=== PATIENT | male | born 1935 | race Caucasian/White ===

== ENCOUNTER 2019-01-19 16:23 | Emergency (ER) | payer MEDICARE, OTHER ==
[2019-01-19 19:10] LABS: Basophils % (A) 0 %; Eosinophils # (A) 0.1 k/uL (0-0.7); Eosinophils % (A) 1 %; HCT 35.6 % (39.0-53.0); HGB 12.5 gm/dL (13.0-17.5); Lymphocytes # (A) 1.8 k/uL (1.0-4.8); Lymphocytes % (A) 28 %; MCH 34.8 pg (25.0-35.0); MCV 99.3 fL (80.0-100.0); Mean Platelet Volume 7.4; Monocytes # (A) 0.4 k/uL (0-1.0); Monocytes % (A) 6 %; Neutrophils # (A) 4.1 k/uL (1.3-7.7); Neutrophils % (A) 63 %; Platelet Count 119 k/uL (150-450); RBC 3.58 m/uL (4.30-5.90); RDW 14.6 % (11.5-15.5); WBC 6.6 k/uL (3.8-10.6)
--- NOTE | 2019-01-19 19:14 | CT ---
EXAMINATION TYPE: CT brain juan torres DATE OF EXAM: 01/19/2019 COMPARISON: None HISTORY: weakness CT DLP: 1406.8 mGycm Automated exposure control for dose reduction was used. TECHNIQUE: CT scan of the head and cervical spine are performed without contrast. FINDINGS: There is no acute intracranial hemorrhage, mass effect, or midline shift identified. The ventricles and sulci are within normal limits in size. The globes are intact and the visualized sin uses are clear. Cervical spine is visualized in its entirety from C1 through upper thoracic levels and demonstrates s atisfactory alignment without evidence of acute fracture or dislocation. Prevertebral soft tissue ap pears within normal limits. Advanced multilevel cervical spondylosis changes. The C1-C2 articulation is unremarkable. IMPRESSION: 1. There is no acute fracture or dislocation evident in the cervical spine. 2. No acute intracranial hemorrhage, mass effect, or midline shift is seen.
[2019-01-19 19:16] LABS: Calcium 9.3 mg/dL (8.4-10.2); Potassium 4.6 mmol/L (3.5-5.1); Total Bilirubin 0.9 mg/dL (0.2-1.3); Total Protein 6.6 g/dL (6.3-8.2)
--- NOTE | 2019-01-19 19:16 | XR ---
EXAMINATION: XR chest 2V DATE AND TIME: 01/19/2019 6:14 PM CLINICAL INDICATION: PHH; Weakness TECHNIQUE: AP and lateral views COMPARISON: None FINDINGS: The lungs are clear. The pleural spaces are negative. The cardiac silhouette is not enlarged. The remainder of the mediastinal silhouette is unremarkable. The skeletal structures and soft tissues are negative for acute findings. IMPRESSION: NO ACUTE PROCESS.
[2019-01-19 19:27] LABS: Partial Thromboplastin Time 23.1 sec (22.0-30.0); Prothrombin Time 10.8 sec (9.0-12.0)
[2019-01-19 19:34] LABS: Appearance,Urine Clear (Clear); Bilirubin,Urine Negative (Negative); Blood,Urine Negative (Negative); Color,Urine Yellow; Glucose,Urine (UA) Negative (Negative); Ketones,Urine Negative (Negative); Leukocyte Esterase,Urine Negative (Negative); Nitrite,Urine Negative (Negative); PH, Urine 5.5 (5.0-8.0); Protein,Urine Negative (Negative); Specific Gravity,Urine 1.013 (1.001-1.035); Urobilinogen,Urine <2.0 mg/dL (<2.0)
--- NOTE | 2019-01-19 19:43 | ED ---
Weakness HPI - General Chief complaint: Weakness Stated complaint: poss stroke Time Seen by Provider: 01/19/19 16:30 Source: patient Mode of arrival: wheelchair Limitations: no limitations - History of Present Illness Initial comments: The patient is an 83-year-old male who presents to emergency room with reported weakness. states that he has been progressively worse over the past month. He has been ambulating with a cane which has progressed to a walker because of the weakness. She states since Friday the patient has been confused. She rep orts that on Friday he had a fall. Denies any blunt head trauma. The patient was reportedly trying to put his underwear on over his pants. The patient did see Dr. Major in office today. It was his normal follow-up. Dr. Major did notice that the patient's left side of his face was drooping. He recommended that he come to the emergency room for evaluation. states that the patient has always had a left-sided facial droop. She does not believe that it is any worse than normal. There has been reportedly 16 pounds of weight loss in the past month. The patient reports a good appetite. No nausea vomiting or diarrhea. Denies any melanotic stools or hematochezia. Denies any chest pain or shortness of breath. No abdominal pain. There are no other alleviating, precipitating or modifying factors - Related Data Home Medications Medication Instructions Recorded Confirmed Aspirin EC [Ecotrin Low Dose] 81 mg PO HS 01/19/19 01/19/19 Atorvastatin [Lipitor] 40 mg PO DAILY 01/19/19 01/19/19 C,E,Zinc,Copper 11/Qxljg6g/Lut 1 cap PO HS 01/19/19 01/19/19 [Ocuvite Adult 50 Plus Softgel] Ezetimibe [Zetia] 10 mg PO DAILY 01/19/19 01/19/19 Ferrous Sulfate [Feosol] 325 mg PO HS 01/19/19 01/19/19 Furosemide [Lasix] 20 mg PO DAILY 01/19/19 01/19/19 Gemfibrozil [Lopid] 600 mg PO BID 01/19/19 01/19/19 Insulin Glargine,Hum.rec.anlog 20 unit SQ DAILY@1800 01/19/19 01/19/19 [Lantus Solostar] Lisinopril [Zestril] 10 mg PO DAILY 01/19/19 01/19/19 Magnesium Oxide [Hicks] 500 mg PO HS 01/19/19 01/19/19 Metoprolol Tartrate 25 mg PO BID 01/19/19 01/19/19 Multivitamins, Thera [Multivitamin 1 tab PO HS 01/19/19 01/19/19 (formulary)] [place]-3 Fatty Acids/Fish Oil [Fish 1 cap PO HS 01/19/19 01/19/19 Oil 1,000 mg Softgel] glipiZIDE [Glucotrol] 10 mg PO BID 01/19/19 01/19/19 sitaGLIPtin PHOS/metFORMIN HCL 1 tab PO BID 01/19/19 01/19/19 [Janumet 50-500 mg Tablet] Allergies Allergy/AdvReac Type Severity Reaction Status Date / Time codeine Allergy Unknown Verified 01/19/19 16:50 Review of Systems ROS Statement: Those systems with pertinent positive or pertinent negative responses have been documented in the HPI. ROS Other: All systems not noted in ROS Statement are negative. Past Medical History Past Medical History: Diabetes Mellitus, Hyperlipidemia, Myocardial Infarction ([place]) History of Any Multi-Drug Resistant Organisms: None Reported Past Surgical History: Cholecystectomy, Heart Catheterization, Orthopedic Surgery Past Psychological History: No Psychological Hx Reported Smoking Status: Former smoker Past Alcohol Use History: None Reported Past Drug Use History: None Reported General Exam Limitations: no limitations Course Vital Signs 01/19/19 01/19/19 16:25 20:44 Temperature 97.4 F L 98.3 F Pulse Rate 59 L 53 L Respiratory 18 16 Rate Blood Pressure 122/60 128/62 O2 Sat by Pulse 98 97 Oximetry EKG Findings - EKG Comments: EKG Findings:: EKG demonstrates a sinus bradycardia with a ventricular rate of 56. IN interval is 204. QRS 100. QTC 426. There are inverted T waves in leads V3 through V5, lead 3. There are no acute ST segment elevations. There is no EKG available for comparison. Medical Decision Making - Medical Decision Making Upon arrival the patient is placed into room 1. He is hooked up to continuous pulse ox and cardiac cath lab manager. Thorough history and physical exam was performed. A 12 EKG is performed which demonstrates sinus bradycardia. I did recommend laboratory studies. Creatinine 1.27, glucose 24, CK 2:30, troponin 0.026, BNP 479. Patient is sent over for a CT of his brain which demonstrates no acute findings. Discussed these results with the patient and his at bedside. As the patient does present with increased confusion and inability to ambulate and left-sided facial droop I did recommend admission to the hospital for evaluation by neurology. The patient adamantly refuses. His is at bedside and does agree with this decision. He did inform the patient of the risks of leaving without a thorough evaluation which included permanent disability and even . Patient continues to request to leave. I informed him that he must follow-up with his primary care physician within the next 2 days. He should re turn to the emergency room for any new or worsening symptoms. The patient is with agree to this and he was discharged home in stable condition - Lab Data Result diagrams: 01/19/19 17:18 01/19/19 17:18 Lab Results 01/19/19 01/19/19 01/19/19 Range/Units 17:18 17:18 17:18 WBC 6.6 (3.8-10.6) k/uL RBC 3.58 L (4.30-5.90) m/uL Hgb 12.5 L (13.0-17.5) gm/dL Hct 35.6 L (39.0-53.0) % MCV 99.3 (80.0-100.0) fL MCH 34.8 (25.0-35.0) pg MCHC 35.0 (31.0-37.0) g/dL RDW 14.6 (11.5-15.5) % Plt Count 119 L (150-450) k/uL Neutrophils % 63 % Lymphocytes % 28 % Monocytes % 6 % Eosinophils % 1 % Basophils % 0 % Neutrophils # 4.1 (1.3-7.7) k/uL Lymphocytes # 1.8 (1.0-4.8) k/uL Monocytes # 0.4 (0-1.0) k/uL Eosinophils # 0.1 (0-0.7) k/uL Basophils # 0.0 (0-0.2) k/uL PT (9.0-12.0) sec INR (<1.2) APTT (22.0-30.0) sec Sodium 142 (137-145) mmol/L Potassium 4.6 (3.5-5.1) mmol/L Chloride 103 (98-107) mmol/L Carbon Dioxide 29 (22-30) mmol/L Anion Gap 10 mmol/L BUN 24 H (9-20) mg/dL Creatinine 1.27 H (0.66-1.25) mg/dL Est GFR (CKD-EPI)AfAm 60 (>60 ml/min/1.73 sqM) Est GFR (CKD-EPI)NonAf 52 (>60 ml/min/1.73 sqM) Glucose 154 H (74-99) mg/dL Plasma Lactic Acid Joey (0.7-2.0) mmol/L Calcium 9.3 (8.4-10.2) mg/dL Total Bilirubin 0.9 (0.2-1.3) mg/dL AST 36 (17-59) U/L ALT 24 (21-72) U/L Alkaline Phosphatase 87 (38-126) U/L Creatine Kinase 230 H (55-170) U/L Troponin I (0.000-0.034) ng/mL NT-Pro-B Natriuret Pep 479 pg/mL Total Protein 6.6 (6.3-8.2) g/dL Albumin 4.0 (3.5-5.0) g/dL TSH 1.180 (0.465-4.680) mIU/L Urine Color Urine Appearance (Clear) Urine pH (5.0-8.0) Ur Specific [place] (1.001-1.035) Urine Protein (Negative) Urine Glucose (UA) (Negative) Urine Ketones (Negative) Urine Blood (Negative) Urine Nitrite (Negative) Urine Bilirubin (Negative) Urine Urobilinogen (<2.0) mg/dL Ur Leukocyte Esterase (Negative) 01/19/19 01/19/19 01/19/19 Range/Units 17:18 17:18 17:50 WBC (3.8-10.6) k/uL RBC (4.30-5.90) m/uL Hgb (13.0-17.5) gm/dL Hct (39.0-53.0) % MCV (80.0-100.0) fL MCH (25.0-35.0) pg MCHC (31.0-37.0) g/dL RDW (11.5-15.5) % Plt Count (150-450) k/uL Neutrophils % % Lymphocytes % % Monocytes % % Eosinophils % % Basophils % % Neutrophils # (1.3-7.7) k/uL Lymphocytes # (1.0-4.8) k/uL Monocytes # (0-1.0) k/uL Eosinophils # (0-0.7) k/uL Basophils # (0-0.2) k/uL PT 10.8 (9.0-12.0) sec INR 1.0 (<1.2) APTT 23.1 (22.0-30.0) sec Sodium (137-145) mmol/L Potassium (3.5-5.1) mmol/L Chloride (98-107) mmol/L Carbon Dioxide (22-30) mmol/L Anion Gap mmol/L BUN (9-20) mg/dL Creatinine (0.66-1.25) mg/dL Est GFR (CKD-EPI)AfAm (>60 ml/min/1.73 sqM) Est GFR (CKD-EPI)NonAf (>60 ml/min/1.73 sqM) Glucose (74-99) mg/dL Plasma Lactic Acid Joey 1.2 (0.7-2.0) mmol/L Calcium (8.4-10.2) mg/dL Total Bilirubin (0.2-1.3) mg/dL AST (17-59) U/L ALT (21-72) U/L Alkaline Phosphatase (38-126) U/L Creatine Kinase (55-170) U/L Troponin I 0.026 (0.000-0.034) ng/mL NT-Pro-B Natriuret Pep pg/mL Total Protein (6.3-8.2) g/dL Albumin (3.5-5.0) g/dL TSH (0.465-4.680) mIU/L Urine Color Urine Appearance (Clear) Urine pH (5.0-8.0) Ur Specific [place] (1.001-1.035) Urine Protein (Negative) Urine Glucose (UA) (Negative) Urine Ketones (Negative) Urine Blood (Negative) Urine Nitrite (Negative) Urine Bilirubin (Negative) Urine Urobilinogen (<2.0) mg/dL Ur Leukocyte Esterase (Negative) 01/19/19 Range/Units 19:20 WBC (3.8-10.6) k/uL RBC (4.30-5.90) m/uL Hgb (13.0-17.5) gm/dL Hct (39.0-53.0) % MCV (80.0-100.0) fL MCH (25.0-35.0) pg MCHC (31.0-37.0) g/dL RDW (11.5-15.5) % Plt Count (150-450) k/uL Neutrophils % % Lymphocytes % % Monocytes % % Eosinophils % % Basophils % % Neutrophils # (1.3-7.7) k/uL Lymphocytes # (1.0-4.8) k/uL Monocytes # (0-1.0) k/uL Eosinophils # (0-0.7) k/uL Basophils # (0-0.2) k/uL PT (9.0-12.0) sec INR (<1.2) APTT (22.0-30.0) sec Sodium (137-145) mmol/L Potassium (3.5-5.1) mmol/L Chloride (98-107) mmol/L Carbon Dioxide (22-30) mmol/L Anion Gap mmol/L BUN (9-20) mg/dL Creatinine (0.66-1.25) mg/dL Est GFR (CKD-EPI)AfAm (>60 ml/min/1.73 sqM) Est GFR (CKD-EPI)NonAf (>60 ml/min/1.73 sqM) Glucose (74-99) mg/dL Plasma Lactic Acid Joey (0.7-2.0) mmol/L Calcium (8.4-10.2) mg/dL Total Bilirubin (0.2-1.3) mg/dL AST (17-59) U/L ALT (21-72) U/L Alkaline Phosphatase (38-126) U/L Creatine Kinase (55-170) U/L Troponin I (0.000-0.034) ng/mL NT-Pro-B Natriuret Pep pg/mL Total Protein (6.3-8.2) g/dL Albumin (3.5-5.0) g/dL TSH (0.465-4.680) mIU/L Urine Color Yellow Urine Appearance Clear (Clear) Urine pH 5.5 (5.0-8.0) Ur Specific [place] 1.013 (1.001-1.035) Urine Protein Negative (Negative) Urine Glucose (UA) Negative (Negative) Urine Ketones Negative (Negative) Urine Blood Negative (Negative) Urine Nitrite Negative (Negative) Urine Bilirubin Negative (Negative) Urine Urobilinogen <2.0 (<2.0) mg/dL Ur Leukocyte Esterase Negative (Negative) Disposition Clinical Impression: Confusion Disposition: HOME SELF-CARE Condition: Serious Additional Instructions: Please follow-up with Dr. Currie as soon as possible. I did recommend hospital admission. Return to the emergency room for any new or worsening symptoms Is patient prescribed a controlled substance at d/c from ED?: No Referrals: Evangelista Currie DO [Primary Care Provider] - 1-2 days Time of Disposition: 20:27
[2019-01-19 20:46] VITALS: BP 128/62; PULSE 53; RESP 16; TEMP 98.3
== END 2019-01-19 20:58 | disposition home or self-care (01) ==
LOC: EC 16:23
DX: R41.0 Disorientation, unspecified (principal); R53.1 Weakness; R63.4 Abnormal weight loss; Z68.28 Body mass index [BMI] 28.0-28.9, adult; R00.1 Bradycardia, unspecified; R29.810 Facial weakness; E78.5 Hyperlipidemia, unspecified; E11.9 Type 2 diabetes mellitus without complications; I25.2 Old myocardial infarction; Z79.4 Long term (current) use of insulin; Z79.82 Long term (current) use of aspirin; Z79.899 Other long term (current) drug therapy; Z88.5 Allergy status to narcotic agent; Z87.891 Personal history of nicotine dependence; Z95.5 Presence of coronary angioplasty implant and graft
CPT/HCPCS: 36415; 70450; 71046; 72125; 80053; 81003; 82550; 83605; 83880; 84443; 84484; 85025; 85610; 85730; 93005; 99285

== ENCOUNTER 2019-04-12 09:28 | Emergency (ER) | payer MEDICARE, OTHER ==
[2019-04-12 09:34] LABS: Glucose,Whole Blood 66 mg/dL (75-99)
[2019-04-12] MEDS ORDERED: SODIUM CHLORIDE 0.9% 1,000 ML IV ONE (09:34)
[2019-04-12] MEDS ORDERED: DEXTROSE 50% SYRINGE 50 ML IVP STA (09:39)
--- NOTE | 2019-04-12 09:41 | ED ---
General Adult HPI - General Stated complaint: altered mental status Time Seen by Provider: 04/12/19 09:28 Source: EMS, RN notes reviewed, old records reviewed - History of Present Illness Initial comments: This is an 83-year-old male who presents emergency Department with altered mental status. Patient was sent in by caregivers and he is been altered for the last 2 days been getting a little bit worse according to the caregivers. EMS stated when they arrived the patient's blood sugar was in the 50s and he was given sugar. According to EMS family thought his speech was slurred at this time. Upon arrival his speech seems to be fairly clear. After the patient had surgery he seemed to become more alert upon arrival he was alert and oriented 2. Patient had no complaints of pain. Patient denied any chest pain or back pain. Patient denied any abdominal pain. Patient denied any recent injury or trauma. No family member caregiver was with the patient. EMS did state that the patient been incontinent lately. There is no history of any fevers. No one is with the patient at this time to give any further history - Related Data Home Medications Medication Instructions Recorded Confirmed Aspirin EC [Ecotrin Low Dose] 81 mg PO HS 01/19/19 04/12/19 Atorvastatin [Lipitor] 40 mg PO DAILY 01/19/19 04/12/19 C,E,Zinc,Copper 11/Nhjgd5n/Lut 1 cap PO HS 01/19/19 04/12/19 [Ocuvite Adult 50 Plus Softgel] Ezetimibe [Zetia] 10 mg PO DAILY 01/19/19 04/12/19 Ferrous Sulfate [Feosol] 325 mg PO HS 01/19/19 04/12/19 Furosemide [Lasix] 20 mg PO DAILY 01/19/19 04/12/19 Gemfibrozil [Lopid] 600 mg PO BID 01/19/19 04/12/19 Insulin Glargine,Hum.rec.anlog 20 unit SQ HS 01/19/19 04/12/19 [Lantus Solostar] Lisinopril [Zestril] 5 mg PO DAILY 01/19/19 04/12/19 Magnesium Oxide [Hicks] 500 mg PO HS 01/19/19 04/12/19 Multivitamins, Thera [Multivitamin 1 tab PO HS 01/19/19 04/12/19 (formulary)] [place]-3 Fatty Acids/Fish Oil [Fish 1 cap PO HS 01/19/19 04/12/19 Oil 1,000 mg Softgel] glipiZIDE [Glucotrol] 10 mg PO BID 01/19/19 04/12/19 sitaGLIPtin PHOS/metFORMIN HCL 1 tab PO BID 01/19/19 04/12/19 [Janumet 50-500 mg Tablet] Cholecalciferol [Vitamin D3 (25 1,000 unit PO DAILY 04/12/19 04/12/19 Mcg = 1000 Iu)] Donepezil HCl [Aricept] 10 mg PO HS 04/12/19 04/12/19 Metoprolol Tartrate [Lopressor] 25 mg PO DAILY PRN 04/12/19 04/12/19 Allergies Allergy/AdvReac Type Severity Reaction Status Date / Time codeine Allergy Unknown Verified 04/12/19 10:50 Review of Systems ROS Statement: Those systems with pertinent positive or pertinent negative responses have been documented in the HPI. ROS Other: All systems not noted in ROS Statement are negative. Past Medical History Past Medical History: Diabetes Mellitus, Hyperlipidemia, Myocardial Infarction ([place]) History of Any Multi-Drug Resistant Organisms: None Reported Past Surgical History: Cholecystectomy, Heart Catheterization, Orthopedic Surgery Past Psychological History: No Psychological Hx Reported Smoking Status: Former smoker Past Alcohol Use History: None Reported Past Drug Use History: None Reported General Exam - General Exam Comments Initial Comments: GENERAL: Patient is well-developed and well-nourished. Patient is nontoxic and well- hydrated and is in no acute distress. ENT: Neck is soft and supple. No significant lymphadenopathy is noted. Oropharynx is clear. Moist mucous membranes. Neck has full range of motion without eliciting any pain. EYES: The sclera were anicteric and conjunctiva were pink and moist. Extraocular movements were intact and pupils were equal round and reactive to light. Eyelids were unremarkable. PULMONARY: Unlabored respirations. Good breath sounds bilaterally. No audible rales rhonchi or wheezing was noted. CARDIOVASCULAR: There is a regular rate and rhythm without any murmurs gallops or rubs. ABDOMEN: Soft and nontender with normal bowel sounds. SKIN: Skin is clear with no lesions or rashes and otherwise unremarkable. NEUROLOGIC: Patient is alert and oriented 2. Cranial nerves II through XII are grossly intact. Motor and sensory are also intact. Normal speech, volume and content. Symmetrical smile. MUSCULOSKELETAL: Normal extremities with adequate strength and full range of motion. LYMPHATICS: No significant lymphadenopathy is noted PSYCHIATRIC: Normal psychiatric evaluation. Course Vital Signs 04/12/19 04/12/19 04/12/19 09:30 09:45 09:52 Temperature 98 F 98 F Pulse Rate 63 66 63 Respiratory 18 18 18 Rate Blood Pressure 147/79 140/61 147/79 O2 Sat by Pulse 100 100 100 Oximetry 04/12/19 04/12/19 04/12/19 10:00 10:30 11:00 Temperature 98 F Pulse Rate 62 58 L 56 L Respiratory 16 16 16 Rate Blood Pressure 147/79 142/64 142/64 O2 Sat by Pulse 100 100 100 Oximetry 04/12/19 04/12/19 04/12/19 11:30 12:00 12:15 Temperature 97.8 F Pulse Rate 56 L 55 L 60 Respiratory 16 16 15 Rate Blood Pressure 142/64 142/64 142/64 O2 Sat by Pulse 100 99 95 Oximetry Medical Decision Making - Medical Decision Making EKG shows normal sinus rhythm at 61 speech per minute OH interval is 188 QRSs 102 QT interval 422 QTC is 424. Patient's EKG shows no ST segment elevation or depression. After patient's glucose was elevated he was back to his baseline according to family. Patient was able to ambulate around the ER without problem. Patient will follow-up with Dr. Currie. Patient is going to cut his insulin from 20 units at night down to 15 - Lab Data Result diagrams: 04/12/19 09:45 04/12/19 09:45 Lab Results 04/12/19 04/12/19 04/12/19 Range/Units 09:33 09:45 09:45 WBC 6.8 (3.8-10.6) k/uL RBC 3.57 L (4.30-5.90) m/uL Hgb 12.2 L (13.0-17.5) gm/dL Hct 36.1 L (39.0-53.0) % MCV 101.2 H (80.0-100.0) fL MCH 34.1 (25.0-35.0) pg MCHC 33.7 (31.0-37.0) g/dL RDW 12.8 (11.5-15.5) % Plt Count 92 L (150-450) k/uL Neutrophils % 65 % Lymphocytes % 26 % Monocytes % 5 % Eosinophils % 2 % Basophils % 0 % Neutrophils # 4.4 (1.3-7.7) k/uL Lymphocytes # 1.8 (1.0-4.8) k/uL Monocytes # 0.4 (0-1.0) k/uL Eosinophils # 0.1 (0-0.7) k/uL Basophils # 0.0 (0-0.2) k/uL Manual Slide Review Performed Poikilocytosis (manual Present Anisocytosis (manual) Present PT (9.0-12.0) sec INR (<1.2) APTT (22.0-30.0) sec Sodium 141 (137-145) mmol/L Potassium 4.5 (3.5-5.1) mmol/L Chloride 107 (98-107) mmol/L Carbon Dioxide 26 (22-30) mmol/L Anion Gap 8 mmol/L BUN 17 (9-20) mg/dL Creatinine 0.87 (0.66-1.25) mg/dL Est GFR (CKD-EPI)AfAm >90 (>60 ml/min/1.73 sqM) Est GFR (CKD-EPI)NonAf 80 (>60 ml/min/1.73 sqM) Glucose 188 H (74-99) mg/dL POC Glucose (mg/dL) 66 L (75-99) mg/dL POC Glu Development Specialist Joan Rudd Plasma Lactic Acid Joey (0.7-2.0) mmol/L Calcium 8.7 (8.4-10.2) mg/dL Total Bilirubin 1.1 (0.2-1.3) mg/dL AST 35 (17-59) U/L ALT 16 (4-49) U/L Alkaline Phosphatase 75 (38-126) U/L Troponin I (0.000-0.034) ng/mL Total Protein 6.2 L (6.3-8.2) g/dL Albumin 3.6 (3.5-5.0) g/dL Urine Color Urine Appearance (Clear) Urine pH (5.0-8.0) Ur Specific [place] (1.001-1.035) Urine Protein (Negative) Urine Glucose (UA) (Negative) Urine Ketones (Negative) Urine Blood (Negative) Urine Nitrite (Negative) Urine Bilirubin (Negative) Urine Urobilinogen (<2.0) mg/dL Ur Leukocyte Esterase (Negative) Urine RBC (0-5) /hpf Urine WBC (0-5) /hpf Urine Mucus (None) /hpf Urine Opiates Screen (NotDetected) Ur Oxycodone Screen (NotDetected) Urine Methadone Screen (NotDetected) Ur Propoxyphene Screen (NotDetected) Ur Barbiturates Screen (NotDetected) U Tricyclic Antidepress (NotDetected) Ur Phencyclidine Scrn (NotDetected) Ur Amphetamines Screen (NotDetected) U Methamphetamines Scrn (NotDetected) U Benzodiazepines Scrn (NotDetected) Urine Cocaine Screen (NotDetected) U Marijuana (THC) Screen (NotDetected) 04/12/19 04/12/19 04/12/19 Range/Units 09:45 09:45 09:45 WBC (3.8-10.6) k/uL RBC (4.30-5.90) m/uL Hgb (13.0-17.5) gm/dL Hct (39.0-53.0) % MCV (80.0-100.0) fL MCH (25.0-35.0) pg MCHC (31.0-37.0) g/dL RDW (11.5-15.5) % Plt Count (150-450) k/uL Neutrophils % % Lymphocytes % % Monocytes % % Eosinophils % % Basophils % % Neutrophils # (1.3-7.7) k/uL Lymphocytes # (1.0-4.8) k/uL Monocytes # (0-1.0) k/uL Eosinophils # (0-0.7) k/uL Basophils # (0-0.2) k/uL Manual Slide Review Poikilocytosis (manual Anisocytosis (manual) PT 11.0 (9.0-12.0) sec INR 1.0 (<1.2) APTT 23.8 (22.0-30.0) sec Sodium (137-145) mmol/L Potassium (3.5-5.1) mmol/L Chloride (98-107) mmol/L Carbon Dioxide (22-30) mmol/L Anion Gap mmol/L BUN (9-20) mg/dL Creatinine (0.66-1.25) mg/dL Est GFR (CKD-EPI)AfAm (>60 ml/min/1.73 sqM) Est GFR (CKD-EPI)NonAf (>60 ml/min/1.73 sqM) Glucose (74-99) mg/dL POC Glucose (mg/dL) (75-99) mg/dL POC Glu Development Specialist ID Plasma Lactic Acid Joey 1.2 (0.7-2.0) mmol/L Calcium (8.4-10.2) mg/dL Total Bilirubin (0.2-1.3) mg/dL AST (17-59) U/L ALT (4-49) U/L Alkaline Phosphatase (38-126) U/L Troponin I 0.018 (0.000-0.034) ng/mL Total Protein (6.3-8.2) g/dL Albumin (3.5-5.0) g/dL Urine Color Urine Appearance (Clear) Urine pH (5.0-8.0) Ur Specific [place] (1.001-1.035) Urine Protein (Negative) Urine Glucose (UA) (Negative) Urine Ketones (Negative) Urine Blood (Negative) Urine Nitrite (Negative) Urine Bilirubin (Negative) Urine Urobilinogen (<2.0) mg/dL Ur Leukocyte Esterase (Negative) Urine RBC (0-5) /hpf Urine WBC (0-5) /hpf Urine Mucus (None) /hpf Urine Opiates Screen (NotDetected) Ur Oxycodone Screen (NotDetected) Urine Methadone Screen (NotDetected) Ur Propoxyphene Screen (NotDetected) Ur Barbiturates Screen (NotDetected) U Tricyclic Antidepress (NotDetected) Ur Phencyclidine Scrn (NotDetected) Ur Amphetamines Screen (NotDetected) U Methamphetamines Scrn (NotDetected) U Benzodiazepines Scrn (NotDetected) Urine Cocaine Screen (NotDetected) U Marijuana (THC) Screen (NotDetected) 04/12/19 04/12/19 04/12/19 Range/Units 09:57 10:20 10:20 WBC (3.8-10.6) k/uL RBC (4.30-5.90) m/uL Hgb (13.0-17.5) gm/dL Hct (39.0-53.0) % MCV (80.0-100.0) fL MCH (25.0-35.0) pg MCHC (31.0-37.0) g/dL RDW (11.5-15.5) % Plt Count (150-450) k/uL Neutrophils % % Lymphocytes % % Monocytes % % Eosinophils % % Basophils % % Neutrophils # (1.3-7.7) k/uL Lymphocytes # (1.0-4.8) k/uL Monocytes # (0-1.0) k/uL Eosinophils # (0-0.7) k/uL Basophils # (0-0.2) k/uL Manual Slide Review Poikilocytosis (manual Anisocytosis (manual) PT (9.0-12.0) sec INR (<1.2) APTT (22.0-30.0) sec Sodium (137-145) mmol/L Potassium (3.5-5.1) mmol/L Chloride (98-107) mmol/L Carbon Dioxide (22-30) mmol/L Anion Gap mmol/L BUN (9-20) mg/dL Creatinine (0.66-1.25) mg/dL Est GFR (CKD-EPI)AfAm (>60 ml/min/1.73 sqM) Est GFR (CKD-EPI)NonAf (>60 ml/min/1.73 sqM) Glucose (74-99) mg/dL POC Glucose (mg/dL) 114 H (75-99) mg/dL POC Glu Development Specialist ID Lo, [place] Plasma Lactic Acid Joey (0.7-2.0) mmol/L Calcium (8.4-10.2) mg/dL Total Bilirubin (0.2-1.3) mg/dL AST (17-59) U/L ALT (4-49) U/L Alkaline Phosphatase (38-126) U/L Troponin I (0.000-0.034) ng/mL Total Protein (6.3-8.2) g/dL Albumin (3.5-5.0) g/dL Urine Color Yellow Urine Appearance Clear (Clear) Urine pH 6.0 (5.0-8.0) Ur Specific [place] 1.016 (1.001-1.035) Urine Protein Negative (Negative) Urine Glucose (UA) Negative (Negative) Urine Ketones Negative (Negative) Urine Blood Moderate H (Negative) Urine Nitrite Negative (Negative) Urine Bilirubin Negative (Negative) Urine Urobilinogen <2.0 (<2.0) mg/dL Ur Leukocyte Esterase Negative (Negative) Urine RBC 42 H (0-5) /hpf Urine WBC 1 (0-5) /hpf Urine Mucus Rare H (None) /hpf Urine Opiates Screen Not Detected (NotDetected) Ur Oxycodone Screen Not Detected (NotDetected) Urine Methadone Screen Not Detected (NotDetected) Ur Propoxyphene Screen Not Detected (NotDetected) Ur Barbiturates Screen Not Detected (NotDetected) U Tricyclic Antidepress Detected H (NotDetected) Ur Phencyclidine Scrn Not Detected (NotDetected) Ur Amphetamines Screen Not Detected (NotDetected) U Methamphetamines Scrn Not Detected (NotDetected) U Benzodiazepines Scrn Not Detected (NotDetected) Urine Cocaine Screen Not Detected (NotDetected) U Marijuana (THC) Screen Not Detected (NotDetected) Disposition Clinical Impression: Hypoglycemia Disposition: HOME SELF-CARE Instructions (If sedation given, give patient instructions): Hypoglycemia in a Person with Diabetes (ED) Additional Instructions: Patient should follow-up with Dr. Currie today or tomorrow Is patient prescribed a controlled substance at d/c from ED?: No Referrals: Evangelista Currie DO [Primary Care Provider] - 1-2 days Time of Disposition: 12:50
[2019-04-12 10:08] LABS: ALT 16 U/L (4-49); AST 35 U/L (17-59); African American GFR (CKD) >90 (>60 ml/min/1.73 sqM); Albumin 3.6 g/dL (3.5-5.0); Alkaline Phosphatase 75 U/L (38-126); Anion Gap 8 mmol/L; Blood Urea Nitrogen 17 mg/dL (9-20); Calcium 8.7 mg/dL (8.4-10.2); Carbon Dioxide 26 mmol/L (22-30); Chloride 107 mmol/L (98-107); Glucose 188 mg/dL (74-99); Non-African American GFR(CKD) 80 (>60 ml/min/1.73 sqM); Potassium 4.5 mmol/L (3.5-5.1); Sodium 141 mmol/L (137-145); Total Bilirubin 1.1 mg/dL (0.2-1.3); Total Protein 6.2 g/dL (6.3-8.2)
[2019-04-12 10:09] LABS: Glucose,Whole Blood 114 mg/dL (75-99)
[2019-04-12 10:09] LABS: Basophils % (A) 0 %; Eosinophils # (A) 0.1 k/uL (0-0.7); Eosinophils % (A) 2 %; HCT 36.1 % (39.0-53.0); HGB 12.2 gm/dL (13.0-17.5); Lymphocytes # (A) 1.8 k/uL (1.0-4.8); Lymphocytes % (A) 26 %; MCH 34.1 pg (25.0-35.0); MCHC 33.7 g/dL (31.0-37.0); MCV 101.2 fL (80.0-100.0); Mean Platelet Volume 7.4; Monocytes # (A) 0.4 k/uL (0-1.0); Monocytes % (A) 5 %; Neutrophils # (A) 4.4 k/uL (1.3-7.7); Neutrophils % (A) 65 %; RBC 3.57 m/uL (4.30-5.90); RDW 12.8 % (11.5-15.5); WBC 6.8 k/uL (3.8-10.6)
[2019-04-12 10:12] VITALS: BP 142/64
[2019-04-12 10:12] LABS: Partial Thromboplastin Time 23.8 sec (22.0-30.0)
--- NOTE | 2019-04-12 10:34 | CT ---
EXAMINATION TYPE: CT brain wo con DATE OF EXAM: 04/12/2019 COMPARISON: 01/19/2019 HISTORY: altered mental status CT DLP: 1091.[address] of the brain was performed. The ventricles, basal cisterns and sulci overlying the cerebral convexities demonstrate mild enlargem ent. There is no evidence for intracranial hemorrhage or sulcal effacement. There is decreased attenuation about the periventricular white matter and deep white matter of both c erebral hemispheres, compatible with chronic small vessel ischemia. Differential diagnosis does inclu de demyelination. No mass effects are seen.No midline shift. Osseous calvarium is intact. If symptoms persist consider MRI. IMPRESSION: 1. Age related atrophic and chronic small vessel ischemic change without acute intracranial process s een at this time.
--- NOTE | 2019-04-12 10:35 | XR ---
EXAMINATION TYPE: XR chest 2V DATE OF EXAM: 04/12/2019 COMPARISON: 01/19/2019 HISTORY: Shortness of breath TECHNIQUE: Frontal and lateral views of the chest are obtained. FINDINGS: Scattered senescent parenchymal changes noted. Hyperinflation compatible with COPD. No evidence for infiltrate. No evidence for atelectasis. Heart size is stable. Mediastinal structures are stable and grossly unremarkable. No evidence for hilar prominence. Degenerative changes dorsal spine. IMPRESSION: 1. No evidence for acute pulmonary disease.
[2019-04-12 10:49] LABS: Platelet Count 92 k/uL (150-450)
[2019-04-12 10:50] LABS: Anisocytosis (M) Present; Poikilocytosis (M) Present
[2019-04-12 10:51] LABS: Appearance,Urine Clear (Clear); Bilirubin,Urine Negative (Negative); Blood,Urine Moderate (Negative); Color,Urine Yellow; Glucose,Urine (UA) Negative (Negative); Ketones,Urine Negative (Negative); Leukocyte Esterase,Urine Negative (Negative); Mucus,Urine Rare /hpf; Nitrite,Urine Negative (Negative); Protein,Urine Negative (Negative); RBC,Urine 42 /hpf (0-5); Specific Gravity,Urine 1.016 (1.001-1.035); Urobilinogen,Urine <2.0 mg/dL (<2.0); WBC,Urine 1 /hpf (0-5)
[2019-04-12 11:08] LABS: Amphetamine Screen,Urine Not Detected (NotDetected); Barbiturate Screen,Urine Not Detected (NotDetected); Benzodiazepines Screen,Urine Not Detected (NotDetected); Cocaine Screen,Urine Not Detected (NotDetected); Methadone Screen, Urine Not Detected (NotDetected); Opiate Screen,Urine Not Detected (NotDetected); Oxycodone Screen, Urine Not Detected (NotDetected); Phencyclidine Screen,Urine Not Detected (NotDetected); Tricyclic Antidepressant,Urine Detected (NotDetected); Urn Cannabinoid Scrn Not Detected (NotDetected)
[2019-04-12 12:16] VITALS: PULSE 60; RESP 15; TEMP 97.8
== END 2019-04-12 13:05 | disposition home or self-care (01) ==
LOC: EC 09:28
DX: E11.649 Type 2 diabetes mellitus with hypoglycemia without coma (principal); E78.5 Hyperlipidemia, unspecified; I25.2 Old myocardial infarction; Z79.82 Long term (current) use of aspirin; Z79.4 Long term (current) use of insulin; Z79.899 Other long term (current) drug therapy; Z88.5 Allergy status to narcotic agent; Z87.891 Personal history of nicotine dependence
CPT/HCPCS: 36415; 70450; 71046; 80053; 80306; 81001; 83605; 84484; 85025; 85610; 85730; 93005; 96361; 96374; 99285

== ENCOUNTER 2019-05-24 10:01 | Inpatient (IN) | payer MEDICARE, OTHER ==
--- NOTE | 2019-05-24 10:16 | ED ---
General Adult HPI - General Stated complaint: stroke symptoms Time Seen by Provider: 05/24/19 10:01 Source: patient, EMS, RN notes reviewed Mode of arrival: EMS Limitations: altered mental status - History of Present Illness Initial comments: Patient is a pleasant 83-year-old male presenting to the emergency department with concerns for stroke. Onset of symptoms was noticed around 9:00. Last known well was 8 a.m. told EMS that patient was normal at 8 AM. Patient states he does not feel well however is unable to specify complaints very well. Patient does admit to having a headache however is unclear when it started or how severe it is. EMS reports the patient has expressive aphasia right facial droop and right arm weakness. Patient reportedly had similar symptoms not long ago and was diagnosed with TIA. No chest pain or dyspnea. - Related Data Home Medications Medication Instructions Recorded Confirmed Aspirin EC [Ecotrin Low Dose] 81 mg PO HS 01/19/19 05/24/19 Atorvastatin [Lipitor] 40 mg PO DAILY 01/19/19 05/24/19 Ezetimibe [Zetia] 10 mg PO DAILY 01/19/19 05/24/19 Ferrous Sulfate [Feosol] 325 mg PO HS 01/19/19 05/24/19 Gemfibrozil [Lopid] 600 mg PO BID 01/19/19 05/24/19 Insulin Glargine,Hum.rec.anlog 26 unit SQ HS 01/19/19 05/24/19 [Lantus Solostar] Lisinopril [Zestril] 10 mg PO DAILY 01/19/19 05/24/19 sitaGLIPtin PHOS/metFORMIN HCL 1 tab PO BID 01/19/19 05/24/19 [Janumet 50-500 mg Tablet] Donepezil HCl [Aricept] 10 mg PO HS 04/12/19 05/24/19 Metoprolol Tartrate [Lopressor] 25 mg PO DAILY 04/12/19 05/24/19 Allergies Allergy/AdvReac Type Severity Reaction Status Date / Time codeine Allergy Unknown Verified 05/24/19 11:14 Review of Systems ROS Statement: Those systems with pertinent positive or pertinent negative responses have been documented in the HPI. ROS Other: All systems not noted in ROS Statement are negative. Constitutional: Denies: fever Eyes: Denies: eye pain ENT: Denies: ear pain Respiratory: Denies: cough Cardiovascular: Denies: chest pain Endocrine: Denies: fatigue Gastrointestinal: Denies: abdominal pain Genitourinary: Denies: dysuria Skin: Denies: rash Neurological: Reports: headache, weakness Past Medical History Past Medical History: Diabetes Mellitus, Hyperlipidemia, Myocardial Infarction ([place]) History of Any Multi-Drug Resistant Organisms: None Reported Past Surgical History: Cholecystectomy, Heart Catheterization, Orthopedic Surgery Past Psychological History: No Psychological Hx Reported Smoking Status: Former smoker Past Alcohol Use History: None Reported Past Drug Use History: None Reported General Exam Limitations: no limitations General appearance: alert, in no apparent distress Head exam: Present: normocephalic Eye exam: Present: normal appearance, PERRL, EOMI. Absent: nystagmus ENT exam: Present: normal oropharynx Neck exam: Present: normal inspection Respiratory exam: Present: normal lung sounds bilaterally Cardiovascular Exam: Present: regular rate, normal rhythm Expanded Peripheral pulses: 2+: Radial (R), Radial (L), Dorsalis Pedis (R), Dorsalis Pedis (L) GI/Abdominal exam: Present: soft. Absent: distended, tenderness Extremities exam: Present: normal inspection Neurological exam: Present: alert, CN II-XII intact (Except for right facial droop) Expanded Neurological exam: Present: protecting the airway Patient oriented to: Present: person, place. Absent: time Speech: Present: expressive aphasia Cranial nerves: EOM's Intact: Normal, Facial Sensation: Normal Sensory exam: Upper Extremity Light Touch: Normal, Lower Extremity Light Touch: Normal Motor strength exam: RUE: 5, LUE: 5, RLE: 5, LLE: 5 Eye Response: (4) open spontaneously Motor Response: (6) obeys commands Verbal Response: (4) confused conversation Psychiatric exam: Present: normal affect, normal mood Skin exam: Present: normal color Course Vital Signs 05/24/19 05/24/19 05/24/19 10:05 10:06 10:09 Temperature 97.6 F 97.6 F Pulse Rate 133 H 70 133 H Respiratory 18 25 H 18 Rate Blood Pressure 167/73 167/73 O2 Sat by Pulse 100 Oximetry 05/24/19 05/24/19 05/24/19 10:15 11:00 11:30 Temperature Pulse Rate 74 61 Respiratory 18 6 L Rate Blood Pressure 167/73 150/69 150/69 O2 Sat by Pulse 98 99 Oximetry - Reevaluation(s) Reevaluation #1: 05/24/19 10:[address] Bonds who is unclear about TPA at this time. He will be the images and evaluate patient threw stroke robot 05/24/19 10:44 Dr. Bonds did evaluate patient on the stroke robot and determined NIH of 2 and states patient is not a TPA candidate. EKG Findings - EKG Comments: EKG Findings:: Normal sinus rhythm 70. ME 200. QRS 96. QT 412. QTC 444. Left axis. Septal Q waves. No acute ST change. Medical Decision Making - Medical Decision Making Patient again reevaluated and slightly improved. Family and patient updated. Case was also discussed in detail with Dr. Currie, who will admit his patient. - Lab Data Result diagrams: 05/24/19 10:28 05/24/19 10:28 Lab Results 05/24/19 05/24/19 05/24/19 Range/Units 10:06 10:28 10:28 WBC 6.3 (3.8-10.6) k/uL RBC 4.03 L (4.30-5.90) m/uL Hgb 13.6 (13.0-17.5) gm/dL Hct 40.7 (39.0-53.0) % MCV 101.1 H (80.0-100.0) fL MCH 33.8 (25.0-35.0) pg MCHC 33.4 (31.0-37.0) g/dL RDW 13.1 (11.5-15.5) % Plt Count 109 L (150-450) k/uL Neutrophils % 50 % Lymphocytes % 41 % Monocytes % 4 % Eosinophils % 1 % Basophils % 1 % Neutrophils # 3.2 (1.3-7.7) k/uL Lymphocytes # 2.6 (1.0-4.8) k/uL Monocytes # 0.3 (0-1.0) k/uL Eosinophils # 0.1 (0-0.7) k/uL Basophils # 0.1 (0-0.2) k/uL PT (9.0-12.0) sec INR (<1.2) APTT (22.0-30.0) sec Sodium 143 (137-145) mmol/L Potassium 4.0 (3.5-5.1) mmol/L Chloride 109 H (98-107) mmol/L Carbon Dioxide 25 (22-30) mmol/L Anion Gap 9 mmol/L BUN 12 (9-20) mg/dL Creatinine 0.80 (0.66-1.25) mg/dL Est GFR (CKD-EPI)AfAm >90 (>60 ml/min/1.73 sqM) Est GFR (CKD-EPI)NonAf 83 (>60 ml/min/1.73 sqM) Glucose 88 (74-99) mg/dL POC Glucose (mg/dL) 81 (75-99) mg/dL POC Glu [employer] Vehicle Driver ID [place] Amin Calcium 9.0 (8.4-10.2) mg/dL Total Bilirubin 1.2 (0.2-1.3) mg/dL AST 27 (17-59) U/L ALT 17 (4-49) U/L Alkaline Phosphatase 104 (38-126) U/L Total Creatine Kinase (55-170) U/L CK-MB (CK-2) (0.0-2.4) ng/mL CK-MB (CK-2) Rel Index Troponin I (0.000-0.034) ng/mL Total Protein 6.4 (6.3-8.2) g/dL Albumin 3.7 (3.5-5.0) g/dL 05/24/19 05/24/19 Range/Units 10:28 10:28 WBC (3.8-10.6) k/uL RBC (4.30-5.90) m/uL Hgb (13.0-17.5) gm/dL Hct (39.0-53.0) % MCV (80.0-100.0) fL MCH (25.0-35.0) pg MCHC (31.0-37.0) g/dL RDW (11.5-15.5) % Plt Count (150-450) k/uL Neutrophils % % Lymphocytes % % Monocytes % % Eosinophils % % Basophils % % Neutrophils # (1.3-7.7) k/uL Lymphocytes # (1.0-4.8) k/uL Monocytes # (0-1.0) k/uL Eosinophils # (0-0.7) k/uL Basophils # (0-0.2) k/uL PT 11.2 (9.0-12.0) sec INR 1.1 (<1.2) APTT 23.0 (22.0-30.0) sec Sodium (137-145) mmol/L Potassium (3.5-5.1) mmol/L Chloride (98-107) mmol/L Carbon Dioxide (22-30) mmol/L Anion Gap mmol/L BUN (9-20) mg/dL Creatinine (0.66-1.25) mg/dL Est GFR (CKD-EPI)AfAm (>60 ml/min/1.73 sqM) Est GFR (CKD-EPI)NonAf (>60 ml/min/1.73 sqM) Glucose (74-99) mg/dL POC Glucose (mg/dL) (75-99) mg/dL POC Glu [employer] Vehicle Driver ID Calcium (8.4-10.2) mg/dL Total Bilirubin (0.2-1.3) mg/dL AST (17-59) U/L ALT (4-49) U/L Alkaline Phosphatase (38-126) U/L Total Creatine Kinase 64 (55-170) U/L CK-MB (CK-2) 3.6 H (0.0-2.4) ng/mL CK-MB (CK-2) Rel Index 5.6 Troponin I 0.019 (0.000-0.034) ng/mL Total Protein (6.3-8.2) g/dL Albumin (3.5-5.0) g/dL - Radiology Data Radiology results: report reviewed (cT scan the brain shows no acute process. Age-related changes.) Disposition Clinical Impression: Cerebrovascular accident (CVA) Disposition: ADMITTED IP TO THIS HOSP Is patient prescribed a controlled substance at d/c from ED?: No Referrals: Evangelista Currie DO [Primary Care Provider] - 1-2 days Decision Time: 11:44
[2019-05-24 10:17] LABS: Glucose,Whole Blood 81 mg/dL (75-99)
--- NOTE | 2019-05-24 10:38 | CT ---
EXAMINATION TYPE: CT brain wo con for TPA DATE OF EXAM: 05/24/2019 HISTORY: Neuro deficit, acute, onset weakness CT DLP: unavailable mGycm. Automated Exposure Control for Dose Reduction was Utilized. TECHNIQUE: CT scan of the head is performed without contrast. COMPARISON: CT brain April 12, [address] January 19, 2019. FINDINGS: There is no acute intracranial hemorrhage or midline shift identified. There is diffuse v entricular and sulcal prominence consistent with diffuse age-related cerebral atrophy. There is low- attenuation in the periventricular white matter consistent with chronic small vessel ischemic change. The globes are intact and the visualized sinuses are clear. IMPRESSION: No acute intracranial hemorrhage or midline shift. There is moderate diffuse age-relate d cerebral atrophy and chronic small vessel ischemic change redemonstrated. No significant change fro m prior CTs.
[2019-05-24 10:44] LABS: Basophils # (A) 0.1 k/uL (0-0.2); Basophils % (A) 1 %; Eosinophils # (A) 0.1 k/uL (0-0.7); Eosinophils % (A) 1 %; HCT 40.7 % (39.0-53.0); HGB 13.6 gm/dL (13.0-17.5); Lymphocytes # (A) 2.6 k/uL (1.0-4.8); Lymphocytes % (A) 41 %; MCH 33.8 pg (25.0-35.0); MCHC 33.4 g/dL (31.0-37.0); MCV 101.1 fL (80.0-100.0); Mean Platelet Volume 7.1; Monocytes # (A) 0.3 k/uL (0-1.0); Monocytes % (A) 4 %; Neutrophils # (A) 3.2 k/uL (1.3-7.7); Neutrophils % (A) 50 %; Platelet Count 109 k/uL (150-450); RBC 4.03 m/uL (4.30-5.90); RDW 13.1 % (11.5-15.5); WBC 6.3 k/uL (3.8-10.6)
--- NOTE | 2019-05-24 10:49 | CT ---
EXAMINATION TYPE: CT angio head neck DATE OF EXAM: 05/24/2019 HISTORY: Neuro deficit, acute, stroke suspected COMPARISON: NONE CT DLP: 487.7 mGycm. Automated Exposure Control for Dose Reduction was Utilized. TECHNIQUE: CTA scan of the head and neck are performed with IV Contrast, patient injected with 65 mL of Isovue 370, axial images are obtained, coronal and sagittal reformatted images are reviewed. Thre e-D reconstructed images are created on an independent workstation and reviewed. FINDINGS: Carotid/Vascular Structures: Normal 3 vessel origin from aortic arch. Right common carotid artery talita ws normal origin from right brachiocephalic artery. No significant plaque or stenosis. Moderate calci fied plaque right carotid bulb extending into the proximal internal carotid artery without significan t stenosis. Tortuous course to the right internal carotid artery. Patent right external carotid arter y without significant plaque or stenosis. No significant plaque or stenosis left common carotid artery. Moderate calcified plaque left carotid bulb extending into proximal internal carotid artery without significant stenosis. Patent external ca rotid artery without significant stenosis. Slightly larger dominant left vertebral artery with mild calcified plaque along its course. Vertebral arteries are patent to basilar junction. Hypoplastic left posterior communicating artery. Patent rig ht posterior communicating artery. No significant focal stenosis or aneurysmal change. Patent anterio r communicating artery. No significant focal stenosis or aneurysmal change. Other: Moderate diffuse cerebral atrophy and chronic small vessel ischemic change and visualized brai n parenchyma. Moderate to severe disc space narrowing and moderate spurring C6-C7 level. Slight scoliotic curvature on coronal images. IMPRESSION: 1. No significant stenosis in common or internal carotid arteries bilaterally. Moderate calcified kamer[place] que bilateral carotid bulb level. 2. No significant stenosis or aneurysmal change at the level of the [place] of [place].
[2019-05-24 10:55] LABS: ALT 17 U/L (4-49); AST 27 U/L (17-59); African American GFR (CKD) >90 (>60 ml/min/1.73 sqM); Albumin 3.7 g/dL (3.5-5.0); Alkaline Phosphatase 104 U/L (38-126); Anion Gap 9 mmol/L; Blood Urea Nitrogen 12 mg/dL (9-20); Carbon Dioxide 25 mmol/L (22-30); Chloride 109 mmol/L (98-107); Glucose 88 mg/dL (74-99); Non-African American GFR(CKD) 83 (>60 ml/min/1.73 sqM); Sodium 143 mmol/L (137-145); Total Bilirubin 1.2 mg/dL (0.2-1.3); Total Protein 6.4 g/dL (6.3-8.2)
[2019-05-24 11:06] LABS: INR 1.1 (<1.2); Prothrombin Time 11.2 sec (9.0-12.0)
[2019-05-24 11:09] LABS: Creatine Kinase MB 3.6 ng/mL (0.0-2.4); Troponin I 0.019 ng/mL (0.000-0.034)
[2019-05-24] MEDS ORDERED: ASPIRIN 325 MG TAB PO STA (11:44)
[2019-05-24] MEDS: SODIUM CHLORIDE 0.9% 1,000 ML IV SCH ×2 (12:23→22:00)
--- NOTE | 2019-05-24 13:39 | XR ---
EXAMINATION TYPE: XR chest 2V DATE OF EXAM: 05/24/2019 COMPARISON: 04/12/2019 HISTORY: Altered mental status TECHNIQUE: Frontal and lateral views of the chest are obtained. FINDINGS: There is no focal air space opacity, pleural effusion, or pneumothorax seen. The cardiac silhouette size is upper limits of normal in size. The osseous structures are intact. Diffuse osseo us demineralization. Cholecystectomy clips are noted. IMPRESSION: No acute cardiopulmonary process.
[2019-05-24 18:48] LABS: Glucose,Whole Blood 76 mg/dL (75-99)
[2019-05-24 20:19] LABS: Glucose,Whole Blood 85 mg/dL (75-99)
[2019-05-24] MEDS ORDERED: ASPIRIN 81 MG PO SCH (21:30)
[2019-05-24] MEDS ORDERED: LORazepam 2 MG/ML INJ IV PRN (21:31)
[2019-05-24] MEDS: DONEPEZIL 10 MG TAB PO SCH (22:02)
[2019-05-24] MEDS: FERROUS SULFATE 325 MG TAB PO SCH (22:02)
[2019-05-24] MEDS: LISINOPRIL 10 MG TAB PO SCH (22:02)
[2019-05-24] MEDS: ATORVASTATIN 80 MG TAB PO SCH (22:02)
[2019-05-24] MEDS: FENOFIBRATE 160 MG TAB PO SCH (22:03)
[2019-05-24] MEDS: INSULIN DETEMIR (LEVEMIR) 100 UNIT/ML SYR SQ SCH (22:03)
[2019-05-25] MEDS: SODIUM CHLORIDE 0.9% 1,000 ML IV SCH ×2 (06:11→15:53)
[2019-05-25 06:23] LABS: Glucose,Whole Blood 92 mg/dL (75-99)
[2019-05-25] MEDS ORDERED: LINAGLIPTIN 5 MG TABLET PO SCH (09:00)
[2019-05-25] MEDS: LISINOPRIL 10 MG TAB PO SCH (11:05)
[2019-05-25] MEDS: EZETIMIBE 10 MG TAB PO SCH (11:05)
[2019-05-25] MEDS: FENOFIBRATE 160 MG TAB PO SCH (11:05)
[2019-05-25] MEDS: METOPROLOL TARTRATE 25 MG TAB PO SCH (11:06)
[2019-05-25] MEDS: metFORMIN 500 MG TAB PO SCH (11:06)
[2019-05-25] MEDS: LINAGLIPTIN 5 MG TABLET PO SCH (11:07)
[2019-05-25] MEDS ORDERED: ASPIRIN 325 MG TAB PO SCH (11:45)
[2019-05-25 12:18] LABS: Glucose,Whole Blood 245 mg/dL (75-99)
--- NOTE | 2019-05-25 13:08 | P.CNNES ---
History of Present Illness Consult date: 05/25/19 Reason for Consult: concern for stroke Chief complaint: R facial droop, RUE weakness History of Present Illness: HISTORY OF PRESENT ILLNESS: Thank you for allowing me to evaluate Mr. Kush Martin. Mr. Martin is an 83 year-old man with PMhx of DM, HLD, NM, dementia, who presented to [facility] after an episode of speech changes. Patient's daughter, Anai, is at bedsides. States that patient was with his when this happened. Yesterday morning, pt's found the patient having garbled speech and appearing confused. this episode lasted for several minutes until EMS arrived. Patient has had similar episodes before when his sugar was low, but his sugar was over 100 yesterday when checked. Patient has not been sick recently, no fevers, nausea, vomiting, diarrhea, coughing. Patient has been having signs of dementia for years, but it appears to have worsened in the past several months, and since 5-6 weeks ago, patient has been having difficulty with moving his legs. He used to be able to walk with a walker although cautiously, but now, patient has difficulty getting his legs up to his bed so he has to place himself in a very specific position so that he can just slide his legs up to the bed. PAST MEDICAL HISTORY: DM, HLD, NM, recent TIA PAST SURGICAL HISTORY: Cholecystectomy, heart cath HOME MEDICATIONS: ASA, atoravastatin, ezetimibe, ferrous sulfate, gemfibrozil, insulin, lisinopril, janumet, donepezil, metoprolol ALLERGIES: codeine SOCIAL HISTORY: former smoker. REVIEW OF SYSTEMS: The 14 systems are reviewed and no additional points are identified compared to the review of systems documented history and physical PHYSICAL EXAMINATION: VITAL SIGNS: T 98.5 HR 67 BP 144/66 O2 sat 96% on RA GEN.: NAD, pleasant but not always cooperative HEENT: NCAT, sclera without icterus NECK: Supple SKIN AND EXTREMITIES: Warm to touch, no edema NEURO: MENTAL STATUS: Patient alert and oriented to self only. Speech fluent, able to name and repeat, following most simple commands readily. No right and left disorientation, neglect. CRANIAL NERVES II THROUGH XII: II: Pupils are equal and reactive to light symmetrically. Visual chairez are intact to confrontation. III, IV, : No ptosis. Extraocular movements full. V: Facial sensation intact from V1-3. VII. L facial droop (daughter states that he's always looked this way ever since she can remember. VIII: Hearing intact to finger rub bilaterally. IX, X: Symmetric palate elevation. XI: Shoulder shrug intact. XII: Tongue midline without fasciculation or atrophy. MOTOR: Normal bulk. ?increased tone although could be due to patient's unable to understand to relax his arms. No pronator drift or tremor. Strength is 5/5 in b /l UE. Patient difficulty with moving b/l LE, able to slide both LEs slightly but not a lot. Plantar/dorsiflexion at least 4/5 SENSORY: Intact to light touch in all 4 extremities. REFLEXES: 2+ throughout. Toes are downgoing. COORDINATION: Finger to nose intact. No dysmetria. GAIT: not assessed DIAGNOSTIC TESTING: LABORATORY: WBC 6.3 Hgb 13.6 Platelet 109 Na 143. K 4.0 Cl 109 CO2 25 BUN 12 Cr 0.80 glucose 88 AST 27 ALT 17 AlkPhos 104 Troponin 0.019 TC 93 LDL 37 HDL 41 TG 76 TSH 1.280 IMAGING: CT Head w/o contrast 05/24/2019: No acute intracranial hemorrhage or midline shift. There is moderate diffuse age-related cerebral strophy and chronic small vessel ischemic change redemonstrated. CTA Head and Neck w/ and w/o contrast 05/24/2019: No significant stenosis in common or ICA bilaterally. Mod calcified plaque bilat eral carotid bulb level. No significant stenosis or aneurysmal change at the level of the [place] of [place]. ASSESSMENT: 83 year-old man with PMhx of DM, HLD, NM, dementia, who presented to [facility] after an episode of speech changes. Patient with risk factors for stroke: DM, HLD, former smoker. Will continue stroke work-up and management RECOMMENDATIONS: 1. MRI brain without contrast 2. Transthoracic echocardiogram 3. Cardiac monitoring 4. Permissive HTN for 24-48 hours SBP >220. Give labetalol 10mg IV q1h PRN for SBP >220 DBP >110 5. ASA 81mg qday 6. Atorvastatin 20mg qhs 7. Labs: A1C 8. PT/OT/ST per protocol 9. Neurology will continue to follow 10. Patient needs to follow up with neurologist as outpatient with her 1-2 we eks of discharge 11. Discussed ED precautions: return to ED if having severe headache, nausea, vomiting, vision deficits, speech difficulty, facial asymmetry, weakness, numbness or tingling. Past Medical History Past Medical History: Dementia, Diabetes Mellitus, Hyperlipidemia, Myocardial Infarction ([place]) Last Myocardial Infarction Date:: unknown History of Any Multi-Drug Resistant Organisms: None Reported Past Surgical History: Cholecystectomy, Heart Catheterization, Orthopedic Surgery Smoking Status: Former smoker - Past Family History Father Family Medical History: COPD Mother Family Medical History: Cancer Additional Family Medical History / Comment(s): lung ca Medications and Allergies Home Medications Medication Instructions Recorded Confirmed Type Aspirin EC [Ecotrin Low Dose] 81 mg PO HS 01/19/19 05/24/19 History Atorvastatin [Lipitor] 40 mg PO DAILY 01/19/19 05/24/19 History Ezetimibe [Zetia] 10 mg PO DAILY 01/19/19 05/24/19 History Ferrous Sulfate [Feosol] 325 mg PO HS 01/19/19 05/24/19 History Gemfibrozil [Lopid] 600 mg PO BID 01/19/19 05/24/19 History Insulin Glargine,Hum.rec.anlog 26 unit SQ HS 01/19/19 05/24/19 History [Lantus Solostar] Lisinopril [Zestril] 10 mg PO DAILY 01/19/19 05/24/19 History sitaGLIPtin PHOS/metFORMIN HCL 1 tab PO BID 01/19/19 05/24/19 History [Janumet 50-500 mg Tablet] Donepezil HCl [Aricept] 10 mg PO HS 04/12/19 05/24/19 History Metoprolol Tartrate [Lopressor] 25 mg PO DAILY 04/12/19 05/24/19 History Allergies Allergy/AdvReac Type Severity Reaction Status Date / Time codeine Allergy Unknown Verified 05/24/19 11:14 Physical Examination - Vital Signs Vital Signs: Vital Signs Temp Pulse Pulse Resp BP BP Pulse Ox 05/25/19 07:58 98.5 F 67 144/66 96 05/25/19 04:00 98.5 F 71 18 120/59 96 05/25/19 00:00 66 18 138/63 100 05/24/19 20:00 98.8 F 63 18 168/67 97 05/24/19 18:50 58 L 18 140/66 97 05/24/19 18:27 97.6 F 62 18 120/70 97 05/24/19 17:30 62 18 120/70 97 05/24/19 14:45 61 18 141/73 99 05/24/19 13:45 60 18 144/75 99 05/24/19 13:40 18 144/75 05/24/19 12:45 61 18 144/75 98 05/24/19 11:45 61 18 151/74 99 05/24/19 11:30 61 6 L 150/69 99 05/24/19 11:00 74 18 150/69 98 Intake and Output 05/24/19 05/25/19 05/25/19 22:59 06:59 14:59 Intake Total 800 240 Output Total 200 330 150 Balance 600 -330 90 Intake: Amount of Fluid Infused ( 800 ml) Oral 240 Output: Urine 200 330 150 Other: Voiding Method Urinal Urinal Urinal Diaper Diaper Diaper Incontinent Incontinent Incontinent # Voids 1 Weight 83.461 kg 82 kg Results - Laboratory Findings CBC and BMP: 05/24/19 10:28 05/24/19 10:28 Abnormal Lab Findings: Abnormal Labs 05/24/19 05/24/19 05/24/19 10:28 10:28 10:28 RBC 4.03 L MCV 101.1 H Plt Count 109 L Chloride 109 H CK-MB (CK-2) 3.6 H
--- NOTE | 2019-05-25 14:29 | MR ---
EXAMINATION TYPE: MR brain wo con DATE OF EXAM: 05/25/2019 1:54 PM COMPARISON: NONE HISTORY: neuro deficit FINDINGS: The ventricles, basal cisterns and sulci overlying the cerebral convexities are moderately enlarged. There is evidence of mild periventricular white matter ischemic demyelination. Remote deep white matter insults are also noted. No acute edema is seen on diffusion weighted imaging. There is no evidence for midline shift or mass effect. Acute intracranial hemorrhage or extra-axial collection is not evident. The paranasal sinuses and mastoid air cells are well-aerated. IMPRESSION: Age-related atrophic and chronic small vessel ischemic change. No acute intracranial process at this time.
[2019-05-25 14:44] LABS: Hemoglobin A1C 5.3 % (4.0-6.0)
[2019-05-25 17:53] LABS: Glucose,Whole Blood 234 mg/dL (75-99)
--- NOTE | 2019-05-25 19:22 | ECHOF ---
Referral Reason:concern for stroke MEASUREMENTS -------- HEIGHT: 188.0 cm WEIGHT: 82.1 kg BP: RVIDd: 3.7 cm (< 3.3) IVSd: 1.3 cm (0.6 - 1.1) LVIDd: 4.6 cm (3.9 - 5.3) LVPWd: 1.1 cm (0.6 - 1.1) IVSs: 1.5 cm LVIDs: 4.2 cm LVPWs: 1.3 cm LA Diam: 4.3 cm (2.7 - 3.8) MV EXCURSION: 16.399 mm (> 18.000) MV EF SLOPE: 113 mm/s (70 - 150) EPSS: 0.3 cm MV E Zack: 0.41 m/s MV DecT: 279 ms MV A Zack: 0.86 m/s MV E/A Ratio: 0.48 AV maxP.55 mmHg AV meanP.85 mmHg RAP: 5.00 mmHg RVSP: 13.29 mmHg FINDINGS -------- Undetermined rhythm. This was a techncally difficult study with suboptimal views, , Lumason utilized for enhancement of im ages. There is mild concentric left ventricular hypertrophy. Overall left ventricular systolic function i s moderate-severely impaired with, an EF between 30 - 35 %. Anterseptal Hypokinesis Inferior Hypo kinesis Septal Hypokinesis [place] Hypokinesis. The right ventricle is mildly enlarged. The left atrium is mildly dilated. The right atrial size is normal. 5.0mg OF Lumason UTLIZED: 2 OR MORE WALL SEGMENTS NOT VISUALIZED. The aortic valve was not well visualized. There is moderate aortic stenosis present. Peak/mean gr adient across the Aortic Valve is 24.55mmHg / 14.85mmHg. Mild mitral annular calcification present. Mild mitral regurgitation is present. Mild tricuspid regurgitation present. Right ventricular systolic pressure is normal at < 35 mmHg. There is no evidence of pulmonary hypertension. The pulmonic valve was not well visualized. The aortic root size is normal. There is no pericardial effusion. CONCLUSIONS -------- 1. Undetermined rhythm. 2. This was a techncally difficult study with suboptimal views, , Lumason utilized for enhancement of images. 3. There is mild concentric left ventricular hypertrophy. 4. Overall left ventricular systolic function is moderate-severely impaired with, an EF between 30 - 35 %. 5. Anterseptal Hypokinesis 6. Inferior Hypokinesis 7. Septal Hypokinesis 8. [place] Hypokinesis. 9. The right ventricle is mildly enlarged. 10. The left atrium is mildly dilated. 11. The right atrial size is normal. 12. 5.0mg OF Lumason UTLIZED: 2 OR MORE WALL SEGMENTS NOT VISUALIZED. 13. The aortic valve was not well visualized. 14. There is moderate aortic stenosis present. 15. Peak/mean gradient across the Aortic Valve is 24.55mmHg / 14.85mmHg. 16. Mild mitral annular calcification present. 17. Mild mitral regurgitation is present. 18. Mild tricuspid regurgitation present. 19. Right ventricular systolic pressure is normal at < 35 mmHg. 20. There is no evidence of pulmonary hypertension. 21. The pulmonic valve was not well visualized. 22. The aortic root size is normal. 23. There is no pericardial effusion. REEL SLITTER: Maeve Curry RDCS
[2019-05-25 20:26] LABS: Glucose,Whole Blood 159 mg/dL (75-99)
[2019-05-25] MEDS: DONEPEZIL 10 MG TAB PO SCH (20:39)
[2019-05-25] MEDS: ATORVASTATIN 20 MG TAB PO SCH (20:39)
[2019-05-25] MEDS: FERROUS SULFATE 325 MG TAB PO SCH (20:39)
[2019-05-25] MEDS: INSULIN DETEMIR (LEVEMIR) 100 UNIT/ML SYR SQ SCH (20:39)
[2019-05-25] MEDS: ATORVASTATIN 80 MG TAB PO SCH (20:43)
[2019-05-26] MEDS ORDERED: INSULIN DETEMIR (LEVEMIR) 100 UNIT/ML SYR SQ SCH (04:47)
[2019-05-26 06:14] LABS: Glucose,Whole Blood 104 mg/dL (75-99)
[2019-05-26] MEDS: SODIUM CHLORIDE 0.9% 1,000 ML IV SCH ×2 (06:15→16:33)
[2019-05-26 07:15] LABS: Basophils # (A) 0.1 k/uL (0-0.2); Basophils % (A) 1 %; Eosinophils # (A) 0.1 k/uL (0-0.7); Eosinophils % (A) 1 %; HCT 38.9 % (39.0-53.0); HGB 13.3 gm/dL (13.0-17.5); Lymphocytes # (A) 1.9 k/uL (1.0-4.8); Lymphocytes % (A) 22 %; MCH 34.2 pg (25.0-35.0); MCHC 34.1 g/dL (31.0-37.0); MCV 100.3 fL (80.0-100.0); Mean Platelet Volume 8.5; Monocytes # (A) 0.6 k/uL (0-1.0); Monocytes % (A) 6 %; Neutrophils # (A) 5.9 k/uL (1.3-7.7); Neutrophils % (A) 68 %; Platelet Count 138 k/uL (150-450); RBC 3.88 m/uL (4.30-5.90); WBC 8.7 k/uL (3.8-10.6)
[2019-05-26 07:26] LABS: African American GFR (CKD) >90 (>60 ml/min/1.73 sqM); Anion Gap 10 mmol/L; Blood Urea Nitrogen 6 mg/dL (9-20); Calcium 8.3 mg/dL (8.4-10.2); Carbon Dioxide 24 mmol/L (22-30); Chloride 107 mmol/L (98-107); Glucose 101 mg/dL (74-99); Non-African American GFR(CKD) >90 (>60 ml/min/1.73 sqM); Potassium 3.3 mmol/L (3.5-5.1); Sodium 141 mmol/L (137-145)
[2019-05-26] MEDS: ASPIRIN 81 MG PO SCH (08:15)
[2019-05-26] MEDS: LISINOPRIL 10 MG TAB PO SCH (08:15)
[2019-05-26] MEDS: LINAGLIPTIN 5 MG TABLET PO SCH (08:15)
[2019-05-26] MEDS: EZETIMIBE 10 MG TAB PO SCH (08:15)
[2019-05-26] MEDS: FENOFIBRATE 160 MG TAB PO SCH (08:15)
[2019-05-26] MEDS: METOPROLOL TARTRATE 25 MG TAB PO SCH (08:16)
[2019-05-26] MEDS: metFORMIN 500 MG TAB PO SCH (08:16)
[2019-05-26 08:30] LABS: Anisocytosis (M) Present; Poikilocytosis (M) Present
[2019-05-26] MEDS ORDERED: Magnesium Replacement Protocol 1 EACH MISC MISCELLANE PRN (11:09)
[2019-05-26] MEDS ORDERED: Potassium Replacement Protocol 1 EACH MISC MISCELLANE PRN (11:09)
[2019-05-26 11:57] LABS: Glucose,Whole Blood 128 mg/dL (75-99)
--- NOTE | 2019-05-26 12:04 | P.HPIM ---
History of Present Illness H&P Date: 05/25/19 Chief Complaint: Slurred speech, confusion This is an 83-year-old gentleman with history of dementia, diabetes mellitus, hyperlipidemia, CAD, NC, former nicotine dependent, recent TIA and multiple other medical issues presented to the ER via EMS with disorientation/confusion, headache, expressive aphasia, right facial droop with right arm weakness. Per ER record patient was at baseline at 0800 with onset of changes noted by 0900. Stroke robotic evaluation with neurologist Lilia Pappas the ER, NIH score of 2, and patient was deemed not a TPA candidate. Denies chest pain, palpitations or shortness of breath. EKG reported normal sinus rhythm, septal infarct, age u ndetermined. Troponin 0.019. Blood sugar 81 on admission. Hypertensive on admission with systolic blood pressures in the 160s, heart rate in the 130s. CBC, BMP within normal limits. Brain CT reporting no significant change from prior CTs, no intracranial hemorrhage or midline shift, moderately diffuse age- related cerebral atrophy, chronic small vessel disease. Angiography CT reported no significant stenosis in common or internal carotid arteries bilaterally, moderate calcified plaque bilateral carotid bulb level. No significant stenosis or aneurysmal change at the level of the [place]. Moderate to severe disc space narrowing and moderate spurring C6-C7 level. Neurology consulted. This morning appears to be close to baseline with minimal left facial droop, speech and confusion resolved,motor strength slow,generalized weakness, equal in all extremities. Review of Systems ROS Statement: Those systems with pertinent positive or pertinent negative responses have been documented in the HPI. ROS Other: All systems not noted in ROS Statement are negative. Past Medical History Past Medical History: Dementia, Diabetes Mellitus, Hyperlipidemia, Myocardial Infarction (NC) Last Myocardial Infarction Date:: unknown History of Any Multi-Drug Resistant Organisms: None Reported Past Surgical History: Cholecystectomy, Heart Catheterization, Orthopedic Surgery Smoking Status: Former smoker - Past Family History Father Family Medical History: COPD Mother Family Medical History: Cancer Additional Family Medical History / Comment(s): lung ca Medications and Allergies Home Medications Medication Instructions Recorded Confirmed Type Aspirin EC [Ecotrin Low Dose] 81 mg PO HS 01/19/19 05/24/19 History Atorvastatin [Lipitor] 40 mg PO DAILY 01/19/19 05/24/19 History Ezetimibe [Zetia] 10 mg PO DAILY 01/19/19 05/24/19 History Ferrous Sulfate [Feosol] 325 mg PO HS 01/19/19 05/24/19 History Gemfibrozil [Lopid] 600 mg PO BID 01/19/19 05/24/19 History Insulin Glargine,Hum.rec.anlog 26 unit SQ HS 01/19/19 05/24/19 History [Lantus Solostar] Lisinopril [Zestril] 10 mg PO DAILY 01/19/19 05/24/19 History sitaGLIPtin PHOS/metFORMIN HCL 1 tab PO BID 01/19/19 05/24/19 History [Janumet 50-500 mg Tablet] Donepezil HCl [Aricept] 10 mg PO HS 04/12/19 05/24/19 History Metoprolol Tartrate [Lopressor] 25 mg PO DAILY 04/12/19 05/24/19 History Allergies Allergy/AdvReac Type Severity Reaction Status Date / Time codeine Allergy Unknown Verified 05/24/19 11:14 Physical Exam Vitals: Vital Signs Temp Pulse Pulse Resp BP BP Pulse Ox 05/25/19 15:58 98 F 60 17 157/70 97 05/25/19 11:35 98.2 F 77 16 157/74 97 05/25/19 08:22 18 05/25/19 07:58 98.5 F 67 16 144/66 96 05/25/19 04:00 98.5 F 71 18 120/59 96 05/25/19 00:00 66 18 138/63 100 05/24/19 20:00 98.8 F 63 18 168/67 97 05/24/19 18:50 58 L 18 140/66 97 05/24/19 18:27 97.6 F 62 18 120/70 97 05/24/19 17:30 62 18 120/70 97 Intake and Output 05/25/19 05/25/19 05/25/19 06:59 14:59 22:59 Intake Total 480 Output Total 330 275 Balance -330 205 Intake: Oral 480 Output: Urine 330 275 Other: Voiding Method Urinal Urinal Urinal Diaper Diaper Diaper Incontinent Incontinent Incontinent # Voids 1 1 Weight 82 kg PHYSICAL EXAM: VITAL SIGNS: As above GENERAL: Sitting up in bed, no acute distress, minimal confusion HEENT: Conjunctivae normal. eyes normal. Mild Left facial droop, Oral mucosa moist NECK: No JVD. No thyroid enlargement. No LNs CARDIOVASCULAR: S1, S2 regular..No murmur RESPIRATION: Breath sounds diminished in the bases. No rhonchi or crackles. No bronchial breathing. ABDOMEN: Soft, nontender . No guarding. no masses palpable. No ascites, No hepatosplenomegaly.Bowel sounds heard. LEGS: No edema. no swelling PSYCHIATRY: Alert and oriented X2-3, mood and affect normal. NERVOUS SYSTEM: Cranial N 2-12 grossly normal. Moves all 4 limbs. Motor streng th slow,generalized weakness, equal in all extremities. No focal deficits. Strength and sensation grossly intact. Skin: no rash , warm and dry Joints: No active swelling. No inflammation. Lymphatic system. No LN neck axilla Results CBC & Chem 7: 05/26/19 06:49 05/26/19 06:49 Labs: Abnormal Lab Results - Last 24 Hours (Table) 05/25/19 Range/Units 12:04 POC Glucose (mg/dL) 245 H (75-99) mg/dL Thrombosis Risk Factor Assmnt - Choose All That Apply Each Risk Factor Represents 3 Points: Age 75 years or older Thrombosis Risk Factor Assessment Total Risk Factor Score: 3 Thrombosis Risk Factor Assessment Level: Moderate Risk Assessment and Plan Assessment: Acute CVA, possible TIA Recent TIA Essential hypertension Sinus tachycardia Dementia, type unknown Hyperlipidemia CT, history of NC Former nicotine dependence Plan: Continue current medication regime ,monitoring and symptomatic treatment. Neurology consult -evaluation/stroke workup in progress. Brain MRI pending Speech therapy consulted for swallow evaluation .Home meds have been reviewed and resumed accordingly. PT/OT consulted Prognosis guarded given multiple complex medical issues. The impression and plan of care has been dictated as directed. : I performed a history and examination of this patient, discussed the same with the dictator. I agree with the dictator's note ,documented as a scribe. Any additional findings or plans will be noted.
[2019-05-26] MEDS ORDERED: MAGNESIUM SULFATE-D5W PMX 1 GM in DEXTROSE/WATER 1 100ML.BAG IVPB ONE ×3 (12:25→17:00)
[2019-05-26] MEDS: PANTOPRAZOLE 40 MG/10 ML VIAL IVP SCH (13:30)
[2019-05-26] MEDS: POTASSIUM CHLORIDE ER 20 MEQ TAB.ER PO SCH ×2 (13:30→16:33)
--- NOTE | 2019-05-26 15:28 | P.PN ---
Progress Note - Text Progress Note Date: 05/26/19 SUBJECTIVE/INTERVAL EVENTS: No acute overnight events. Patient continues to be A&Ox1 only, denies any pain. Spoke to family about MRI result. No acute stroke. Age-related atrophy present. Family asked about whether or not donezepil that was started in February could be worsening his symptoms. Recommended family to call his neurologist and discuss possibility of discontinuing med since medication not helping. PHYSICAL EXAMINATION: VITAL SIGNS: T 98.8 HR 62 RR 18 BP 155/78 O2 sat 97% on RA GEN.: NAD, pleasant but not always cooperative HEENT: NCAT, sclera without icterus NECK: Supple SKIN AND EXTREMITIES: Warm to touch, no edema NEURO: MENTAL STATUS: Patient alert and oriented to self only. Speech fluent, able to name and repeat, following most simple commands readily. No right and left disorientation, neglect. CRANIAL NERVES II THROUGH XII: II: Pupils are equal and reactive to light symmetrically. Visual chairez are intact to confrontation. III, IV, : No ptosis. Extraocular movements full. V: Facial sensation intact from V1-3. VII. L facial droop (daughter states that he's always looked this way ever since she can remember. VIII: Hearing intact to finger rub bilaterally. IX, X: Symmetric palate elevation. XI: Shoulder shrug intact. XII: Tongue midline without fasciculation or atrophy. MOTOR: Normal bulk. ?increased tone although could be due to patient's unable to understand to relax his arms. No pronator drift or tremor. Strength is 5/5 in b/l UE. Patient difficulty with moving b/l LE, able to slide both LEs slightly but not a lot. Plantar/dorsiflexion at least 4/5 SENSORY: Intact to light touch in all 4 extremities. REFLEXES: 2+ throughout. Toes are downgoing. COORDINATION: Finger to nose intact. No dysmetria. GAIT: not assessed DIAGNOSTIC TESTING: LABORATORY: WBC 6.3 Hgb 13.6 Platelet 109 Na 143. K 4.0 Cl 109 CO2 25 BUN 12 Cr 0.80 glucose 88 AST 27 ALT 17 AlkPhos 104 Troponin 0.019 TC 93 LDL 37 HDL 41 TG 76 TSH 1.280 A1C 5.3 IMAGING: CT Head w/o contrast 05/24/2019: No acute intracranial hemorrhage or midline shift. There is moderate diffuse age-related cerebral strophy and chronic small vessel ischemic change redemonst rated. CTA Head and Neck w/ and w/o contrast 05/24/2019: No significant stenosis in common or ICA bilaterally. Mod calcified plaque bilateral carotid bulb level. No significant stenosis or aneurysmal change at the level of the [place] of [place]. MRI brain without contrast 05/25/2019: age-related atrophic and chronic small vessel ischemic change. No acute intr acranial process at this time. Transthoracic echocardiogram 05/25/2019: Undetermined rhythm. Technically difficult study. EF 30-35%. anteroseptal/septal/apex hypokinesis. RV is mildly enlarged. LA is mildly dilated. RA size is normal. Cardiac monitoring: Thus far, some PVCs noted. ASSESSMENT: 83 year-old man with PMhx of DM, HLD, OK, dementia, who presented to [facility] after an episode of speech changes. Patient with risk factors for stroke: DM, HLD, former smoker. MRI brain negative for acute stroke. Dx TIA RECOMMENDATIONS: 1. ASA 81mg qday 2. Atorvastatin 20mg qhs 3. Patient needs to follow up with neurologist as outpatient with her 3-4 weeks of discharge. Patient already has a neurologist who he has seen for dementia. 4. Discussed ED precautions: return to ED if having severe headache, nausea, vomiting, vision deficits, speech difficulty, facial asymmetry, weakness, numbness or tingling. 5. Neurology will sign off at this time. Please contact for additional questions or concerns.
[2019-05-26 17:39] LABS: Glucose,Whole Blood 168 mg/dL (75-99)
--- NOTE | 2019-05-26 18:25 | P.PN ---
Subjective Progress Note Date: 05/26/19 This is an 83-year-old gentleman with history of dementia, diabetes mellitus, hyperlipidemia, CAD, DC, former nicotine dependent, recent TIA and multiple other medical issues presented to the ER via EMS with disorientation/confusion, headache, expressive aphasia, right facial droop with right arm weakness. Per ER record patient was at baseline at 0800 with onset of changes noted by 0900. Stroke robotic evaluation with neurologist Lilia Pappas the ER, NIH score of 2, and patient was deemed not a TPA candidate. Denies chest pain, palpitations or shortness of breath. EKG reported normal sinus rhythm, septal infarct, age undetermined. Troponin 0.019. Blood sugar 81 on admission. Hypertensive on admission with systolic blood pressures in the 160s, heart rate in the 130s. CBC, BMP within normal limits. Brain CT reporting no significant change from prior CTs, no intracranial hemorrhage or midline shift, moderately diffuse age- related cerebral atrophy, chronic small vessel disease. Angiography CT reported no significant stenosis in common or internal carotid arteries bilaterally, moderate calcified plaque bilateral carotid bulb level. No significant stenosis or aneurysmal change at the level of the [place]. Moderate to severe disc space narrowing and moderate spurring C6-C7 level. Neurology consulted. This morning appears to be close to baseline with minimal left facial droop, speech and confusion resolved,motor strength slow,generalized weakness, equal in all extremities. 05/26/2019 received Ativan during the night, this morning arousable but sleepy, fatigued, weaker. Minimal diet intake this morning, consumed only 25% of breakfast/yesterday consumed 50% of meals. Blood sugars stable, controlled. Minimal diet intake Stroke workup in progress. Echo reported moderate to severe impaired LV function, EF 30-35%, and anteroseptal, inferior, hypokinesis, Po tassium 3.3 , magnesium 1.1. Brain MRI reporting no acute intracranial process. Objective - Vital Signs Vital signs: Vital Signs Temp 98.8 F 05/26/19 11:56 Pulse 66 05/26/19 11:56 Resp 13 05/26/19 11:56 BP 120/58 05/26/19 11:56 Pulse Ox 97 05/26/19 11:56 Intake & Output 05/25/19 05/26/19 05/26/19 18:59 06:59 18:59 Intake Total 480 120 Output Total 275 Balance 205 120 Weight 80.5 kg Intake: Oral 480 120 Output: Urine 275 Other: Voiding Method Urinal Urinal Diaper Diaper Diaper Incontinent Incontinent # Voids 1 2 1 - Exam EXAM: VITAL SIGNS: As above GENERAL: Sitting up in bed, no acute distress, appears to be sedated on Ativan HEENT: Conjunctivae normal. eyes normal. Mild Left facial droop NECK: No JVD. No thyroid enlargement. No LNs CARDIOVASCULAR: S1, S2 regular..No murmur RESPIRATION: Breath sounds diminished in the bases. No rhonchi or crackles. No bronchial breathing. ABDOMEN: Soft, nontender . No guarding. no masses palpable. No ascites, No hepatosplenomegaly.Bowel sounds heard. LEGS: No edema. no swelling PSYCHIATRY: Alert and oriented X2-3, mood and affect normal. NERVOUS SYSTEM: Cranial N 2-12 grossly normal. Mildly Weaker this am, attributed to ativan.Motor strength slow,generalized weakness, equal in all extremities. No focal deficits. Strength and sensation grossly intact. Skin: no rash , warm and dry Joints: No active swelling. No inflammation. Lymphatic system. No LN neck axilla - Labs CBC & Chem 7: 05/26/19 06:49 05/26/19 06:49 Labs: Abnormal Lab Results - Last 24 Hours (Table) 05/25/19 05/25/19 05/25/19 Range/Units 12:04 17:32 20:11 RBC (4.30-5.90) m/uL Hct (39.0-53.0) % MCV (80.0-100.0) fL Plt Count (150-450) k/uL Potassium (3.5-5.1) mmol/L BUN (9-20) mg/dL Creatinine (0.66-1.25) mg/dL Glucose (74-99) mg/dL POC Glucose (mg/dL) 245 H 234 H 159 H (75-99) mg/dL Calcium (8.4-10.2) mg/dL Magnesium (1.6-2.3) mg/dL 05/26/19 05/26/19 05/26/19 Range/Units 06:12 06:49 06:49 RBC 3.88 L (4.30-5.90) m/uL Hct 38.9 L (39.0-53.0) % MCV 100.3 H (80.0-100.0) fL Plt Count 138 L (150-450) k/uL Potassium 3.3 L (3.5-5.1) mmol/L BUN 6 L (9-20) mg/dL Creatinine 0.59 L (0.66-1.25) mg/dL Glucose 101 H (74-99) mg/dL POC Glucose (mg/dL) 104 H (75-99) mg/dL Calcium 8.3 L (8.4-10.2) mg/dL Magnesium (1.6-2.3) mg/dL 05/26/19 05/26/19 Range/Units 06:49 11:56 RBC (4.30-5.90) m/uL Hct (39.0-53.0) % MCV (80.0-100.0) fL Plt Count (150-450) k/uL Potassium (3.5-5.1) mmol/L BUN (9-20) mg/dL Creatinine (0.66-1.25) mg/dL Glucose (74-99) mg/dL POC Glucose (mg/dL) 128 H (75-99) mg/dL Calcium (8.4-10.2) mg/dL Magnesium 1.1 L (1.6-2.3) mg/dL Assessment and Plan Assessment: Acute TIA, CVA ruled out as per neurology. Recent TIA Essential hypertension Sinus tachycardia Dementia, type unknown Hyperlipidemia CT, history of DC Former nicotine dependence Hypokalemia Hypomagnesemia Plan: Continue current medication regime ,monitoring and symptomatic treatment. Potassium and magnesium supplements ordered .close monitoring of electrolytes with repeat labs ordered for a.m. PT/OT. Discharge planning in progress pending neurology clearance .Prognosis guarded given multiple complex medical issues. The impression and plan of care has been dictated as directed. : I performed a history and examination of this patient, discussed the same with the dictator. I agree with the dictator's note ,documented as a scribe. Any additional findings or plans will be noted.
[2019-05-26] MEDS: ATORVASTATIN 20 MG TAB PO SCH (20:42)
[2019-05-26] MEDS: DONEPEZIL 10 MG TAB PO SCH (20:42)
[2019-05-26] MEDS: FERROUS SULFATE 325 MG TAB PO SCH (20:42)
[2019-05-26 21:36] LABS: Glucose,Whole Blood 150 mg/dL (75-99)
[2019-05-27 02:01] LABS: Glucose,Whole Blood 107 mg/dL (75-99)
[2019-05-27] MEDS: SODIUM CHLORIDE 0.9% 1,000 ML IV SCH (03:27)
[2019-05-27 05:50] VITALS: RESP 16
[2019-05-27 07:13] LABS: Glucose,Whole Blood 79 mg/dL (75-99)
[2019-05-27 09:08] LABS: HCT 40.9 % (39.0-53.0); HGB 13.7 gm/dL (13.0-17.5); MCH 33.5 pg (25.0-35.0); MCHC 33.6 g/dL (31.0-37.0); MCV 99.8 fL (80.0-100.0); Mean Platelet Volume 7.4; Platelet Count 105 k/uL (150-450); RDW 12.9 % (11.5-15.5); WBC 9.7 k/uL (3.8-10.6)
[2019-05-27 09:35] LABS: African American GFR (CKD) >90 (>60 ml/min/1.73 sqM); Anion Gap 7 mmol/L; Blood Urea Nitrogen 5 mg/dL (9-20); Calcium 8.7 mg/dL (8.4-10.2); Carbon Dioxide 27 mmol/L (22-30); Chloride 106 mmol/L (98-107); Glucose 98 mg/dL (74-99); Magnesium 1.7 mg/dL (1.6-2.3); Non-African American GFR(CKD) >90 (>60 ml/min/1.73 sqM); Potassium 3.3 mmol/L (3.5-5.1); Sodium 140 mmol/L (137-145)
[2019-05-27] MEDS: FENOFIBRATE 160 MG TAB PO SCH (09:40)
[2019-05-27] MEDS: METOPROLOL TARTRATE 25 MG TAB PO SCH (09:40)
[2019-05-27] MEDS: LINAGLIPTIN 5 MG TABLET PO SCH (09:40)
[2019-05-27] MEDS: EZETIMIBE 10 MG TAB PO SCH (09:40)
[2019-05-27] MEDS: ASPIRIN 81 MG PO SCH (09:40)
[2019-05-27] MEDS: PANTOPRAZOLE 40 MG/10 ML VIAL IVP SCH (09:41)
[2019-05-27] MEDS: LISINOPRIL 10 MG TAB PO SCH (09:41)
[2019-05-27] MEDS: metFORMIN 500 MG TAB PO SCH (09:41)
--- NOTE | 2019-05-27 09:54 | P.DS ---
Providers Date of admission: 05/24/19 11:44 Expected date of discharge: 05/27/19 Attending physician: Evangelista Currie Consults: 05/24/19 11:45 Consult Physician Urgent Consulting Provider: Lucie Casillas Consult Reason/Comments: cva; Please compare current MRI to previous MRI Do you want consulting provider notified?: Yes Primary care physician: Evangelista Currie Hospital Course: Final Diagnoses: Acute metabolic encephalopathy secondary to Suspected worsening dementia, Alzheimer's,possible Acute TIA, CVA ruled out as per neurology. Recent TIA Essential hypertension Sinus tachycardia Dementia, type unknown Hyperlipidemia CT, history of SD Former nicotine dependence Hypokalemia Hypomagnesemia Hospital course:This is an 83-year-old gentleman with history of dementia, diabetes mellitus, hyperlipidemia, CAD, SD, former nicotine dependent, recent TIA and multiple other medical issues presented to the ER via EMS with disorientation/confusion, headache, expressive aphasia, right facial droop with right arm weakness. Per ER record patient was at baseline at 0800 with onset of changes noted by 0900. Stroke robotic evaluation with neurologist Lilia Pappas the ER, NIH score of 2, and patient was deemed not a TPA candidate. Denies chest pain, palpitations or shortness of breath. EKG reported normal sinus rhythm, septal infarct, age undetermined. Troponin 0.019. Blood sugar 81 on admission. Hypertensive on admission with systolic blood pressures in the 160s, heart rate in the 130s. CBC, BMP within normal limits. Brain CT reporting no significant change from prior CTs, no intracranial hemorrhage or midline shift, moderately diffuse age-related cerebral atrophy, chronic small vessel disease. Angiography CT reported no significant stenosis in common or internal carotid arteries bilaterally, moderate calcified plaque bilateral carotid bulb level. No significant stenosis or aneurysmal change at the level of the [place] of [place]. Moderate to severe disc space narrowing and moderate spurring C6-C7 level. Neurology consulted. This morning appears to be close to baseline with minimal left facial droop, speech and confusion resolved,motor strength slow,generalized weakness, equal in all extremities. 05/26/2019 received Ativan during the night, this morning arousable but sleepy, fatigued, weaker. Minimal diet intake this morning, consumed only 25% of break fast/yesterday consumed 50% of meals. Blood sugars stable, controlled. Minimal diet intake Stroke workup in progress. Echo reported moderate to severe impaired LV function, EF 30-35%, and anteroseptal, inferior, hypokinesis, Potassium 3.3 , magnesium 1.1. Brain MRI reporting no acute intracranial process. Significant clinical improvement. Cleared by neurology for discharge. Patient is being discharged to [facility] rehab in stable condition with guarded prognosis. EXAM: GENERAL: Alert and oriented 2, no acute distress CARDIOVASCULAR: S1, S2 regular..No murmur RESPIRATION: Breath sounds diminished in the bases. ABDOMEN: Soft, nontender . No guarding. no masses palpable.Bowel sounds heard. NERVOUS SYSTEM:No focal deficits. The impression and plan of care has been dictated as directed. : I performed a history and examination of this patient, discussed the same with the dictator. I agree with the dictator's note ,documented as a scribe. Any additional findings or plans will be noted. Patient Condition at Discharge: Stable Plan - Discharge Summary Discharge Rx Participant: Yes New Discharge Prescriptions: Continue Ferrous Sulfate [Iron (65 MG Elemental)] 325 mg PO HS Aspirin EC [Ecotrin Low Dose] 81 mg PO HS Insulin Glargine,Hum.rec.anlog [Lantus Solostar] 26 unit SQ HS Lisinopril [Zestril] 10 mg PO DAILY Gemfibrozil [Lopid] 600 mg PO BID Ezetimibe [Zetia] 10 mg PO DAILY Atorvastatin [Lipitor] 40 mg PO DAILY sitaGLIPtin PHOS/metFORMIN HCL [Janumet 50-500 mg Tablet] 1 tab PO BID Donepezil HCl [Aricept] 10 mg PO HS Metoprolol Tartrate [Lopressor] 25 mg PO DAILY Discharge Medication List Aspirin EC [Ecotrin Low Dose] 81 mg PO HS 01/19/19 [History] Atorvastatin [Lipitor] 40 mg PO DAILY 01/19/19 [History] Ezetimibe [Zetia] 10 mg PO DAILY 01/19/19 [History] Ferrous Sulfate [Iron (65 MG Elemental)] 325 mg PO HS 01/19/19 [History] Gemfibrozil [Lopid] 600 mg PO BID 01/19/19 [History] Insulin Glargine,Hum.rec.anlog [Lantus Solostar] 26 unit SQ HS 01/19/19 [History] Lisinopril [Zestril] 10 mg PO DAILY 01/19/19 [History] sitaGLIPtin PHOS/metFORMIN HCL [Janumet 50-500 mg Tablet] 1 tab PO BID 01/19/19 [History] Donepezil HCl [Aricept] 10 mg PO HS 04/12/19 [History] Metoprolol Tartrate [Lopressor] 25 mg PO DAILY 04/12/19 [History] Follow up Appointment(s)/Referral(s): Evangelista Currie DO [Primary Care Provider] - 1 Week (After discharge from subacute rehab) Shanea Reza MD [Medical Doctor] - 2 Weeks Activity/Diet/Wound Care/Special Instructions: craig CBC, BMP, magnesium in 2 days Diet: Consistent carb Activity: As tolerated Discharge Disposition: TRANSFER TO SNF/ECF
[2019-05-27 11:43] LABS: Glucose,Whole Blood 123 mg/dL (75-99)
[2019-05-27 11:47] VITALS: BP 115/60; TEMP 99.4
[2019-05-27 12:13] VITALS: PULSE 62
== END 2019-05-27 13:50 | DRG 56 ==
LOC: EC 10:01 → 3SCARD 11:44 → 5NMEDONC 05-26 18:41
PROVIDERS: ADMIT Family Medicine; ATTEND Family Medicine
DX: G30.9 Alzheimer's disease, unspecified (principal); G93.41 Metabolic encephalopathy; G45.9 Transient cerebral ischemic attack, unspecified; R47.01 Aphasia; F02.80 Dementia in other diseases classified elsewhere, unspecified severity, without behavioral disturbance, psychotic disturbance, mood disturbance, and anxiety; E11.9 Type 2 diabetes mellitus without complications; E78.5 Hyperlipidemia, unspecified; E83.42 Hypomagnesemia; E87.6 Hypokalemia; I10 Essential (primary) hypertension; I25.10 Atherosclerotic heart disease of native coronary artery without angina pectoris; I25.2 Old myocardial infarction; R29.810 Facial weakness; Z79.899 Other long term (current) drug therapy; Z80.1 Family history of malignant neoplasm of trachea, bronchus and lung; Z82.5 Family history of asthma and other chronic lower respiratory diseases; Z86.73 Personal history of transient ischemic attack (TIA), and cerebral infarction without residual deficits; Z87.891 Personal history of nicotine dependence; Z90.49 Acquired absence of other specified parts of digestive tract; Z88.5 Allergy status to narcotic agent; R00.0 Tachycardia, unspecified; Z79.82 Long term (current) use of aspirin; Z79.4 Long term (current) use of insulin
CPT/HCPCS: 36415; 70450; 70496; 70498; 70551; 71046; 80048; 80053; 80061; 82550; 82553; 83036; 83735; 84443; 84484; 85025; 85027; 85610; 85730; 93005; 93306; 99285

== ENCOUNTER 2019-07-14 12:23 | Inpatient (IN) | payer MEDICARE, OTHER ==
[2019-07-14] MEDS ORDERED: SODIUM POLYSTYRENE SULFONATE 15 GM/60 ML BOTTLE PO ONE (13:01)
[2019-07-14] MEDS ORDERED: ALBUTEROL NEB (CONC) 2.5 MG/0.5 ML INHALATION ONE ×2 (13:01→23:38)
[2019-07-14] MEDS ORDERED: INSULIN REGULAR 100 UNIT/ML VIAL IV ONE (13:01)
[2019-07-14] MEDS ORDERED: DEXTROSE 50% SYRINGE 50 ML IVP ONE (13:01)
[2019-07-14] MEDS ORDERED: CALCIUM GLUCONATE 1 GM in SODIUM CHLORIDE 0.9% 100 ML IVPB ONE ×2 (13:01→23:45)
[2019-07-14] MEDS ORDERED: SODIUM BICARB 8.4% 50 ML SYR (1 MEQ/ML) IV ONE (13:01)
--- NOTE | 2019-07-14 13:04 | ED ---
General Adult HPI <Alan Fernandez - Last Filed: 07/14/19 15:04> - General Source: EMS, RN notes reviewed Mode of arrival: EMS Limitations: altered mental status <Jan Humphrey - Last Filed: 07/14/19 15:45> - General Chief complaint: Recheck/Abnormal Lab/Rx Stated complaint: Diarrhea Time Seen by Provider: 07/14/19 12:33 - History of Present Illness Initial comments: 83-year-old male with a past medical history of dementia, IDDM, hyperlipidemia, [place] presents to the emergency department for a chief complaint of abnormal labs and diarrhea from long-term [facility]. Apparently patient has had diarrhea and abdominal pain since yesterday. He had outpatient labs performed and had a white count of 18. There is also hyperkalemia likely secondary to acute renal failure. Patient is very dry appearing. Patient is a poor historian.Patient has no other complaints at this time including shortness of breath, chest pain, abdominal pain, nausea or vomiting, headache, or visual changes. (Jan Humphrey) - Related Data Home Medications Medication Instructions Recorded Confirmed Aspirin EC [Ecotrin Low Dose] 81 mg PO DAILY@1700 01/19/19 07/14/19 Ferrous Sulfate [Iron (65 MG 325 mg PO DAILY@169901/19/19 07/14/19 Elemental)] Insulin Glargine,Hum.rec.anlog 26 unit SQ HS 01/19/19 07/14/19 [Lantus Solostar] sitaGLIPtin PHOS/metFORMIN HCL 1 tab PO BID@0800,1700 01/19/19 07/14/19 [Janumet 50-500 mg Tablet] Acetaminophen Oral Susp [Tylenol] 650 mg PO Q4H PRN 07/14/19 07/14/19 Bisacodyl [Dulcolax] 10 mg RECTAL DAILY PRN 07/14/19 07/14/19 Calmoseptine Cream 1 applic TOPICAL BID 07/14/19 07/14/19 Docusate [Colace] 100 mg PO BID@0800,1700 07/14/19 07/14/19 Ensure Clear 237 ml PO BID@0800,1700 07/14/19 07/14/19 Lisinopril [Prinivil] 5 mg PO HS 07/14/19 07/14/19 Loperamide [Imodium] 2 mg PO QID PRN 07/14/19 07/14/19 Magnesium Hydroxide [Milk of 2,400 mg PO DAILY PRN 07/14/19 07/14/19 Magnesia] Metoprolol Tartrate [Lopressor] 12.5 mg PO BID@0800,2100 07/14/19 07/14/19 Na Phos,M-B/Na Phos,Di-Ba [Fleet 133 ml RECTAL DAILY PRN 07/14/19 07/14/19 Adult] Polyethylene Glycol 3350 [Miralax] 17 gm PO DAILY PRN 07/14/19 07/14/19 Sodium Chloride Solution 0.9% 1 dose IV DIRECTED 07/14/19 07/14/19 Allergies Allergy/AdvReac Type Severity Reaction Status Date / Time codeine Allergy Unknown Verified 07/14/19 13:56 Review of Systems ROS Other: All systems not noted in ROS Statement are negative. <Alan Fernandez - Last Filed: 07/14/19 15:04> ROS Other: All systems not noted in ROS Statement are negative. <Jan Humphrey - Last Filed: 07/14/19 15:45> ROS Statement: Those systems with pertinent positive or pertinent negative responses have been documented in the HPI. Past Medical History Past Medical History: Dementia, Diabetes Mellitus, Hyperlipidemia, Myocardial Infarction ([place]) Last Myocardial Infarction Date:: unknown History of Any Multi-Drug Resistant Organisms: None Reported Past Surgical History: Cholecystectomy, Heart Catheterization, Orthopedic Surgery Past Psychological History: No Psychological Hx Reported Smoking Status: Former smoker Past Alcohol Use History: None Reported Past Drug Use History: None Reported - Past Family History Father Family Medical History: COPD Mother Family Medical History: Cancer Additional Family Medical History / Comment(s): lung ca <Jan Humphrey P - Last Filed: 07/14/19 15:45> General Exam Limitations: altered mental status General appearance: alert, in no apparent distress Head exam: Present: atraumatic, normocephalic, normal inspection Eye exam: Present: normal appearance, PERRL, EOMI. Absent: scleral icterus, conjunctival injection, periorbital swelling ENT exam: Present: normal exam, mucous membranes dry (Mucous members are very dry) Neck exam: Present: normal inspection, full ROM. Absent: tenderness, meningismus, lymphadenopathy Respiratory exam: Present: normal lung sounds bilaterally. Absent: respiratory distress, wheezes, rales, rhonchi, stridor Cardiovascular Exam: Present: regular rate, normal rhythm, normal heart sounds. Absent: systolic murmur, diastolic murmur, rubs, gallop, clicks GI/Abdominal exam: Present: soft, tenderness (Patient has suprapubic and left lower quadrant tenderness), normal bowel sounds. Absent: distended, guarding, rebound, rigid Neurological exam: Present: alert <Jan Humphrey P - Last Filed: 07/14/19 15:45> Course Vital Signs 07/14/19 07/14/19 07/14/19 12:28 13:00 13:35 Temperature 98.5 F Pulse Rate 74 73 71 Respiratory 18 18 18 Rate Blood Pressure 82/49 77/40 78/40 O2 Sat by Pulse 97 98 98 Oximetry 07/14/19 07/14/19 07/14/19 14:00 14:06 14:15 Temperature Pulse Rate 70 72 89 Respiratory 18 18 Rate Blood Pressure 75/50 90/40 O2 Sat by Pulse 97 97 Oximetry 07/14/19 07/14/19 07/14/19 14:21 14:30 14:45 Temperature Pulse Rate 85 95 96 Respiratory 18 18 Rate Blood Pressure 73/46 73/56 O2 Sat by Pulse 98 96 Oximetry 07/14/19 07/14/19 07/14/19 15:00 15:15 15:24 Temperature 98.0 F Pulse Rate 93 93 92 Respiratory 18 18 18 Rate Blood Pressure 88/42 72/34 84/50 O2 Sat by Pulse 100 99 100 Oximetry EKG Findings - EKG Comments: EKG Findings:: NSR, vent rate 75, MT int 194, QTc 460 <Jan Humphrey P - Last Filed: 07/14/19 15:45> Procedures - Sepsis Sepsis Focused Exam #1 Time Sepsis Criteria Met: 14:45 Sepsis Focused Exam Date: 07/14/19 Sepsis Focused Exam Time: 15:05 Sepsis Focused Exam Complete: Yes Vital Signs & RN Notes Reviewed: Yes Capillary Refill: < 2 Seconds: Fingers, Toes Peripheral Pulses: Normal: Radial (R), Radial (L) Skin Color: Normal for Patient Respiratory Exam: normal lung sounds Cardiovascular Exam: regular rate, normal rhythm <Fernandez,Alan - Last Filed: 07/14/19 15:04> Medical Decision Making - Lab Data Result diagrams: 07/14/19 12:52 07/14/19 12:52 <Alan Fernandez - Last Filed: 07/14/19 15:04> - Lab Data Result diagrams: 07/14/19 12:52 07/14/19 12:52 <Jan Humphrey - Last Filed: 07/14/19 15:45> - Medical Decision Making Patient reevaluated by myself, Dr. Fernandez. Patient is resting comfortably in bed. Patient maintains hypotensive. Patient has renal insufficiency and hyperkalemia. Patient is recommended to have central line and ICU basement. Patient and family both refuse this. They state no surgery, no intubation, no CPR. No advanced procedures or central lines, no ICU placement. They are aware that patient could get worse and without these additional interventions. Case was also discussed in detail with Dr. Figueroa, who will admit coming from Dr. Trotter. (Alan Fernandez) 30 mL/kg of fluid were given. 500 mL were given prior to arrival and 2000 mL were given here for a total of 2500 mL. 83-year-old patient presents from [facility] care facility for diarrhea. Patient has had diarrhea for the past day. He does have associated abdominal pain. Abdomen is tender in exam worst the left lower quadrant. Patient is hypotensive upon arrival. Systolic blood pressure in the 70s. Given 2.5 L of fluids. CBC does show a white count of 15.2. Hemoglobin stable at 13.1. CMP shows hyperkalemia of 6.9, patient was treated with several different medications. Patient also has acute renal failure. Lactic acidosis also evident. Chest x- ray shows no acute cardiopulmonary process. CT abdomen and pelvis without contrast was ordered given patient's acute renal failure. This did show fairly moderate uncomplicated long segment acute colitis makes sigmoid colon through rectum. Differential includes infectious, inflammatory, ischemic etiologies. Patient was started on IV Zosyn. Does not want surgical intervention. Patient was evaluated by Dr. Fernandez as well. They do not want any advanced procedures, no code status. Patient will be admitted for further management. (Jan Humphrey) - Lab Data Lab Results 07/14/19 07/14/19 07/14/19 Range/Units 12:52 12:52 12:52 WBC 15.2 H (3.8-10.6) k/uL RBC 3.90 L (4.30-5.90) m/uL Hgb 13.1 (13.0-17.5) gm/dL Hct 39.9 (39.0-53.0) % MCV 102.3 H (80.0-100.0) fL MCH 33.6 (25.0-35.0) pg MCHC 32.8 (31.0-37.0) g/dL RDW 13.5 (11.5-15.5) % Plt Count 158 (150-450) k/uL Neutrophils % 81 % Lymphocytes % 11 % Monocytes % 6 % Eosinophils % 0 % Basophils % 0 % Neutrophils # 12.4 H (1.3-7.7) k/uL Lymphocytes # 1.7 (1.0-4.8) k/uL Monocytes # 0.9 (0-1.0) k/uL Eosinophils # 0.0 (0-0.7) k/uL Basophils # 0.0 (0-0.2) k/uL Macrocytosis Slight PT 10.6 (9.0-12.0) sec INR 1.0 (<1.2) APTT 23.5 (22.0-30.0) sec Sodium (137-145) mmol/L Potassium (3.5-5.1) mmol/L Chloride (98-107) mmol/L Carbon Dioxide (22-30) mmol/L Anion Gap mmol/L BUN (9-20) mg/dL Creatinine (0.66-1.25) mg/dL Est GFR (CKD-EPI)AfAm (>60 ml/min/1.73 sqM) Est GFR (CKD-EPI)NonAf (>60 ml/min/1.73 sqM) Glucose (74-99) mg/dL POC Glucose (mg/dL) (75-99) mg/dL POC Glu Carbide Die Maker ID Plasma Lactic Acid Joey (0.7-2.0) mmol/L Calcium (8.4-10.2) mg/dL Total Bilirubin (0.2-1.3) mg/dL AST (17-59) U/L ALT (4-49) U/L Alkaline Phosphatase (38-126) U/L Total Protein (6.3-8.2) g/dL Albumin (3.5-5.0) g/dL Urine Color Dark Brown Urine Appearance Cloudy (Clear) Urine pH 6.0 (5.0-8.0) Ur Specific Hunt 1.024 (1.001-1.035) Urine Protein 3+ H (Negative) Urine Glucose (UA) Trace H (Negative) Urine Ketones Negative (Negative) Urine Blood Negative (Negative) Urine Nitrite Negative (Negative) Urine Bilirubin 1+ H (Negative) Urine Urobilinogen 4.0 (<2.0) mg/dL Ur Leukocyte Esterase Trace H (Negative) Urine RBC 1 (0-5) /hpf Urine WBC 4 (0-5) /hpf Urine Bacteria Rare H (None) /hpf C. difficile (EIA) Intrp (Negative) Influenza Type A RNA (Not Detectd) Influenza Type B (PCR) (Not Detectd) 07/14/19 07/14/19 07/14/19 Range/Units 12:52 12:52 12:52 WBC (3.8-10.6) k/uL RBC (4.30-5.90) m/uL Hgb (13.0-17.5) gm/dL Hct (39.0-53.0) % MCV (80.0-100.0) fL MCH (25.0-35.0) pg MCHC (31.0-37.0) g/dL RDW (11.5-15.5) % Plt Count (150-450) k/uL Neutrophils % % Lymphocytes % % Monocytes % % Eosinophils % % Basophils % % Neutrophils # (1.3-7.7) k/uL Lymphocytes # (1.0-4.8) k/uL Monocytes # (0-1.0) k/uL Eosinophils # (0-0.7) k/uL Basophils # (0-0.2) k/uL Macrocytosis PT (9.0-12.0) sec INR (<1.2) APTT (22.0-30.0) sec Sodium 137 (137-145) mmol/L Potassium 6.9 H* (3.5-5.1) mmol/L Chloride 104 (98-107) mmol/L Carbon Dioxide 14 L (22-30) mmol/L Anion Gap 19 mmol/L BUN 45 H (9-20) mg/dL Creatinine 2.95 H (0.66-1.25) mg/dL Est GFR (CKD-EPI)AfAm 22 (>60 ml/min/1.73 sqM) Est GFR (CKD-EPI)NonAf 19 (>60 ml/min/1.73 sqM) Glucose 59 L (74-99) mg/dL POC Glucose (mg/dL) (75-99) mg/dL POC Glu Carbide Die Maker ID Plasma Lactic Acid Joey 7.2 H* (0.7-2.0) mmol/L Calcium 8.6 (8.4-10.2) mg/dL Total Bilirubin 1.1 (0.2-1.3) mg/dL AST 36 (17-59) U/L ALT 27 (4-49) U/L Alkaline Phosphatase 95 (38-126) U/L Total Protein 6.1 L (6.3-8.2) g/dL Albumin 3.4 L (3.5-5.0) g/dL Urine Color Urine Appearance (Clear) Urine pH (5.0-8.0) Ur Specific Hunt (1.001-1.035) Urine Protein (Negative) Urine Glucose (UA) (Negative) Urine Ketones (Negative) Urine Blood (Negative) Urine Nitrite (Negative) Urine Bilirubin (Negative) Urine Urobilinogen (<2.0) mg/dL Ur Leukocyte Esterase (Negative) Urine RBC (0-5) /hpf Urine WBC (0-5) /hpf Urine Bacteria (None) /hpf C. difficile (EIA) Intrp (Negative) Influenza Type A RNA Not Detected (Not Detectd) Influenza Type B (PCR) Not Detected (Not Detectd) 07/14/19 07/14/19 Range/Units 12:56 14:11 WBC (3.8-10.6) k/uL RBC (4.30-5.90) m/uL Hgb (13.0-17.5) gm/dL Hct (39.0-53.0) % MCV (80.0-100.0) fL MCH (25.0-35.0) pg MCHC (31.0-37.0) g/dL RDW (11.5-15.5) % Plt Count (150-450) k/uL Neutrophils % % Lymphocytes % % Monocytes % % Eosinophils % % Basophils % % Neutrophils # (1.3-7.7) k/uL Lymphocytes # (1.0-4.8) k/uL Monocytes # (0-1.0) k/uL Eosinophils # (0-0.7) k/uL Basophils # (0-0.2) k/uL Macrocytosis PT (9.0-12.0) sec INR (<1.2) APTT (22.0-30.0) sec Sodium (137-145) mmol/L Potassium (3.5-5.1) mmol/L Chloride (98-107) mmol/L Carbon Dioxide (22-30) mmol/L Anion Gap mmol/L BUN (9-20) mg/dL Creatinine (0.66-1.25) mg/dL Est GFR (CKD-EPI)AfAm (>60 ml/min/1.73 sqM) Est GFR (CKD-EPI)NonAf (>60 ml/min/1.73 sqM) Glucose (74-99) mg/dL POC Glucose (mg/dL) 77 (75-99) mg/dL POC Glu Carbide Die Maker ID Rosalind Faustin Plasma Lactic Acid Joey (0.7-2.0) mmol/L Calcium (8.4-10.2) mg/dL Total Bilirubin (0.2-1.3) mg/dL AST (17-59) U/L ALT (4-49) U/L Alkaline Phosphatase (38-126) U/L Total Protein (6.3-8.2) g/dL Albumin (3.5-5.0) g/dL Urine Color Urine Appearance (Clear) Urine pH (5.0-8.0) Ur Specific Hunt (1.001-1.035) Urine Protein (Negative) Urine Glucose (UA) (Negative) Urine Ketones (Negative) Urine Blood (Negative) Urine Nitrite (Negative) Urine Bilirubin (Negative) Urine Urobilinogen (<2.0) mg/dL Ur Leukocyte Esterase (Negative) Urine RBC (0-5) /hpf Urine WBC (0-5) /hpf Urine Bacteria (None) /hpf C. difficile (EIA) Intrp Negative (Negative) Influenza Type A RNA (Not Detectd) Influenza Type B (PCR) (Not Detectd) Critical Care Time Critical Care Time: Yes Total Critical Care Time: 33 <Jan Humphrey - Last Filed: 07/14/19 15:45> Critical Care Time: 33 minutes of critical care time was utilized in the treatment and evaluation of this patient. Patient was evaluated at bedside immediately upon arrival was found to be hypotensive with a systolic blood pressure in the 70s. Patient had received 500 mL of fluids prior to arrival. Bedside evaluations and the vital signs were performed serially. Old records were reviewed and patient presents hyperkalemic with a potassium of 7.0 outpatient and a history of leukocytosis outpatient as well. Hyperkalemia was treated with multiple medications including calcium, bicarb, and insulin and D50W. Case was discussed with admitting physicians. (Jan Humphery) Disposition <Alan Fernandez - Last Filed: 07/14/19 15:04> Is patient prescribed a controlled substance at d/c from ED?: No Time of Disposition: 14:55 <Jan Humphrey - Last Filed: 07/14/19 15:45> Clinical Impression: Hypotension, Lactic acidosis, Septic shock, Hyperkalemia Disposition: ADMITTED IP TO THIS HOSP Condition: Critical
[2019-07-14] MEDS: SODIUM CHLORIDE 0.9% 500 ML 500 ML IV SCH (13:13)
[2019-07-14 13:29] LABS: Basophils % (A) 0 %; Eosinophils % (A) 0 %; HCT 39.9 % (39.0-53.0); HGB 13.1 gm/dL (13.0-17.5); Lymphocytes # (A) 1.7 k/uL (1.0-4.8); Lymphocytes % (A) 11 %; MCH 33.6 pg (25.0-35.0); MCHC 32.8 g/dL (31.0-37.0); MCV 102.3 fL (80.0-100.0); Macrocytosis Slight; Mean Platelet Volume 7.6; Monocytes # (A) 0.9 k/uL (0-1.0); Monocytes % (A) 6 %; Neutrophils # (A) 12.4 k/uL (1.3-7.7); Neutrophils % (A) 81 %; Platelet Count 158 k/uL (150-450); RDW 13.5 % (11.5-15.5); WBC 15.2 k/uL (3.8-10.6)
--- NOTE | 2019-07-14 13:35 | XR ---
EXAMINATION TYPE: XR chest 2V DATE OF EXAM: 07/14/2019 COMPARISON: Chest x-ray May 24, 2019. HISTORY: Fever and diarrhea. TECHNIQUE: Frontal and lateral views of the chest are obtained. FINDINGS: There is no focal air space opacity, pleural effusion, or pneumothorax seen. The cardiac silhouette size is within normal limits. The osseous structures are demineralized. Overlying EKG le ads are redemonstrated. Cholecystectomy clips noted on lateral view. IMPRESSION: No acute cardiopulmonary process. No significant change from prior.
[2019-07-14 13:37] LABS: Appearance,Urine Cloudy (Clear); Bacteria,Urine Rare /hpf; Bilirubin,Urine 1+ (Negative); Blood,Urine Negative (Negative); Color,Urine Dark Brown; Glucose,Urine (UA) Trace (Negative); Ketones,Urine Negative (Negative); Leukocyte Esterase,Urine Trace (Negative); Nitrite,Urine Negative (Negative); Partial Thromboplastin Time 23.5 sec (22.0-30.0); Protein,Urine 3+ (Negative); Prothrombin Time 10.6 sec (9.0-12.0); RBC,Urine 1 /hpf (0-5); Specific Gravity,Urine 1.024 (1.001-1.035); WBC,Urine 4 /hpf (0-5)
[2019-07-14 13:42] LABS: Albumin 3.4 g/dL (3.5-5.0); Calcium 8.6 mg/dL (8.4-10.2); Total Bilirubin 1.1 mg/dL (0.2-1.3); Total Protein 6.1 g/dL (6.3-8.2)
--- NOTE | 2019-07-14 13:45 | CT ---
EXAMINATION TYPE: CT abdomen pelvis wo con DATE OF EXAM: 07/14/2019 HISTORY: abdominal pain CT DLP: 635.6 mGycm. Automated Exposure Control for Dose Reduction was Utilized. TECHNIQUE: CT scan of the abdomen and pelvis is performed without oral or IV contrast. COMPARISON: NONE FINDINGS: Within the limitations of a non-contrast study, the following observations are made. LUNG BASES: Coronary artery calcification and/or stents are present. Some respiratory motion artifact degradation. LIVER/GB: Cholecystectomy clips. PANCREAS: No significant abnormality is seen. SPLEEN: No significant abnormality is seen. ADRENALS: Low dense thickening to both adrenal glands felt to reflect benign lipid rich hyperplasia. KIDNEYS: No renal stones or hydronephrosis seen bilaterally. Bladder poorly distended with moderate c oncentric wall thickening. BOWEL: Suboptimal evaluation without enteric contrast. Stomach poorly distended but suboptimally eval uated. Few air-fluid levels in the stomach and duodenal sweep which is nonspecific. Some fluid-filled slightly prominent jejunal loops in the left abdomen with few scattered air fluid levels. Less promi nent ileal loops in the right abdomen. Fluid-filled right colon. Fecal material seen in nondistended transverse colon. Left colon shows mild wall thickening. There is more moderate wall thickening in th e slightly redundant sigmoid colon with mild to moderate ill-defined fluid and fat stranding surround ing the mid to distal sigmoid colon which is fecal filled extending into the rectum which is more pro minent fecal material. No pneumoperitoneum. No well-formed fluid collection or abscess. GENITAL ORGANS: Some central and posterior calcifications in normal sized prostate. LYMPH NODES: No greater than 1cm abdominal or pelvic lymph nodes are appreciated. OSSEOUS STRUCTURES: Asymmetric slight enlargement of right proximal femur including femoral head with trabeculation. One must consider underlying Paget's disease. Spine is straightened with moderate to severe multilevel spurring. There is multilevel disc space addie rowing greatest at L4-L5 level. OTHER: Small fat-containing right inguinal hernia. IMPRESSION: 1. There is a fairly moderate uncomplicated fairly long segment acute colitis mid sigmoid colon throu gh the rectum centered in the pelvis. Underlying neoplasm not entirely excluded. Consider follow-up n onemergent colonoscopy after medical treatment. Differential includes infectious, inflammatory, and i schemic etiologies. 2. Possible Paget's disease centered at right hip level. Correlate clinically and nonemergent follow- up advised.
[2019-07-14 13:46] LABS: Potassium 6.9 mmol/L (3.5-5.1)
[2019-07-14] MEDS ORDERED: SODIUM CHLORIDE 0.9% 1,000 ML IV STA (13:49)
[2019-07-14 14:27] LABS: Glucose,Whole Blood 77 mg/dL (75-99)
[2019-07-14] MEDS ORDERED: PIPERACILLIN-TAZOBACTAM 3.375 GM in SODIUM CHLORIDE 0.9% 100 ML IVPB STA (14:50)
[2019-07-14] MEDS ORDERED: NALOXONE 0.4 MG/ML 1 ML VIAL IV PRN (14:56)
[2019-07-14] MEDS: SODIUM CHLORIDE 0.9% 1,000 ML IV SCH ×2 (15:13→22:57)
[2019-07-14] MEDS ORDERED: ACETAMINOPHEN ORAL SUSP 160 MG/5 ML CUP PO PRN (18:10)
[2019-07-14 20:11] LABS: Glucose,Whole Blood 83 mg/dL (75-99)
[2019-07-14] MEDS ORDERED: INSULIN DETEMIR (LEVEMIR) 100 UNIT/ML SYR SQ SCH (21:00)
[2019-07-14] MEDS ORDERED: SODIUM CHLORIDE 0.9% 1,000 ML IV ONE (21:24)
[2019-07-14] MEDS: INSULIN ASPART (NovoLOG) 100 UNIT/ML VIAL SQ SCH (21:25)
[2019-07-14 22:54] LABS: Basophils % (A) 0 %; Eosinophils # (A) 0.1 k/uL (0-0.7); Eosinophils % (A) 1 %; HCT 36.1 % (39.0-53.0); HGB 11.9 gm/dL (13.0-17.5); Lymphocytes # (A) 1.3 k/uL (1.0-4.8); Lymphocytes % (A) 12 %; MCH 34.2 pg (25.0-35.0); MCHC 32.9 g/dL (31.0-37.0); MCV 103.9 fL (80.0-100.0); Macrocytosis Slight; Mean Platelet Volume 7.4; Monocytes # (A) 0.5 k/uL (0-1.0); Monocytes % (A) 5 %; Neutrophils # (A) 8.3 k/uL (1.3-7.7); Neutrophils % (A) 80 %; Platelet Count 105 k/uL (150-450); RBC 3.47 m/uL (4.30-5.90); RDW 13.5 % (11.5-15.5); WBC 10.4 k/uL (3.8-10.6)
[2019-07-14] MEDS: PIPERACILLIN-TAZOBACTAM 3.375 GM in SODIUM CHLORIDE 0.9% 100 ML IVPB SCH (22:56)
[2019-07-14 23:14] VITALS: RESP 18
[2019-07-14 23:14] LABS: Albumin 2.8 g/dL (3.5-5.0); Total Bilirubin 0.7 mg/dL (0.2-1.3); Total Protein 5.2 g/dL (6.3-8.2)
[2019-07-14 23:21] LABS: Potassium 6.1 mmol/L (3.5-5.1)
[2019-07-15] MEDS: ACETAMINOPHEN IV (For NPO) 1,000 MG in EMPTY BAG 1 BAG IVPB SCH ×4 (00:06→17:14)
[2019-07-15 00:51] LABS: Glucose,Whole Blood 78 mg/dL (75-99)
[2019-07-15 05:01] LABS: Basophils % (A) 0 %; Eosinophils # (A) 0.1 k/uL (0-0.7); Eosinophils % (A) 1 %; HCT 34.5 % (39.0-53.0); HGB 11.4 gm/dL (13.0-17.5); Lymphocytes # (A) 1.2 k/uL (1.0-4.8); Lymphocytes % (A) 12 %; MCV 103.3 fL (80.0-100.0); Macrocytosis Slight; Mean Platelet Volume 7.3; Monocytes # (A) 0.4 k/uL (0-1.0); Monocytes % (A) 4 %; Neutrophils # (A) 7.7 k/uL (1.3-7.7); Neutrophils % (A) 81 %; Platelet Count 116 k/uL (150-450); RBC 3.34 m/uL (4.30-5.90); RDW 13.6 % (11.5-15.5); WBC 9.6 k/uL (3.8-10.6)
[2019-07-15 05:20] LABS: Albumin 2.7 g/dL (3.5-5.0); Calcium 7.9 mg/dL (8.4-10.2); Potassium 5.8 mmol/L (3.5-5.1); Total Bilirubin 0.7 mg/dL (0.2-1.3); Total Protein 5.1 g/dL (6.3-8.2)
[2019-07-15] MEDS: SODIUM CHLORIDE 0.9% 1,000 ML IV SCH ×3 (05:25→17:13)
[2019-07-15 06:17] VITALS: BP 79/45; PULSE 89; TEMP 97
[2019-07-15 07:02] LABS: Glucose,Whole Blood 82 mg/dL (75-99)
[2019-07-15] MEDS: INSULIN ASPART (NovoLOG) 100 UNIT/ML VIAL SQ SCH ×3 (07:06→17:20)
[2019-07-15] MEDS: PIPERACILLIN-TAZOBACTAM 3.375 GM in SODIUM CHLORIDE 0.9% 100 ML IVPB SCH (07:16)
[2019-07-15] MEDS ORDERED: DEXTROSE 50% SYRINGE 50 ML IVP STA (10:03)
[2019-07-15] MEDS ORDERED: SODIUM CHLORIDE 0.9% 1,000 ML IV ONE (10:06)
[2019-07-15] MEDS ORDERED: DEXTROSE 5%-0.9% NACL 1,000 ML IV SCH (10:15)
[2019-07-15] MEDS ORDERED: INSULIN REGULAR 100 UNIT/ML VIAL IV ONE (10:30)
[2019-07-15 11:48] LABS: Glucose,Whole Blood 103 mg/dL (75-99)
[2019-07-15] MEDS ORDERED: LORazepam 2 MG/ML INJ IV PRN (12:47)
--- NOTE | 2019-07-15 12:52 | P.GSCN ---
History of Present Illness Consult date: 07/15/19 Reason for Consult: evaluation Requesting physician: Alan Fernandez History of present illness: CHIEF COMPLAINT: colitis HISTORY OF PRESENT ILLNESS: 83-year-old male who was brought via EMS to the emergency room from his long-term care facility for diarrhea. The patient is a poor historian. He is currently pleasantly confused. There is no family at the bedside. Patient has a patient safety officer at the bedside. She reports patient had a small normal bowel movement this morning. Patient also ate breakfast without nausea or vomiting. The patient does report generalized abdominal pain. REVIEW OF SYSTEMS: Unable to obtain thorough review of systems secondary to altered mental status PHYSICAL EXAM: VITAL SIGNS: Reviewed GENERAL: Well-developed in no acute distress. HEENT: No sclera icterus. Extraocular movements grossly intact. Moist buccal mucosa. Head is atraumatic, normocephalic. Hears conversational speech. No nasal drai nage. NECK: Supple without lymphadenopathy. CHEST: Non-labored respirations and equal bilateral excursions. CARDIOVASCULAR: Regular rate with regular rhythm. Palpable 2+ radial pulses. ABDOMEN: Soft. Nondistended. Mild diffuse tenderness. MUSCULOSKELETAL: No clubbing or cyanosis. NEUROLOGIC: No focal or lateralizing signs. Cranial nerves II through XII grossly intact. PSYCH: Appropriate affect. Awake and alert. Pleasantly confused. SKIN: Well perfused. Good skin turgor. LABORATORY DATA: WBC on admission 15.2. Repeat 9.6. Sodium 137. Potassium 5.8. BUN 53. Creatinine 3.29. Most recent lactic acid 2.9. IMAGING: CT abdomen and pelvis: Fairly moderate uncomplicated long segment acute colitis mid sigmoid colon to the rectum. ASSESSMENT: 1. Diarrhea 2. Acute colitis PLAN: Continue antibiotics Diet as tolerated No surgical intervention recommended Hospice consulted initiated per internal medicine Nurse practitioner note has been reviewed by physician. Signing provider agrees with the documented findings, assessment, and plan of care. Past Medical History Past Medical History: Coronary Artery Disease (CAD), CVA/TIA, Dementia, Diabetes Mellitus, Hyperlipidemia, Hypertension, Myocardial Infarction (PR), Renal Di sease Additional Past Medical History / Comment(s): Worsening dementia, IDDM type II, neuropathy bilateral hands, recently informed kidneys are not functioning properly, TIA, L lower leg blisters, confusion, self transfers/falls, dysphagia- sit up to eat and cut food up small, constipation Last Myocardial Infarction Date:: 1989 History of Any Multi-Drug Resistant Organisms: None Reported Past Surgical History: Cholecystectomy, Heart Catheterization, Orthopedic Surgery Additional Past Surgical History / Comment(s): 1989 cardiac cath-treated medically, leg injury with surgery/treasure Past Anesthesia/Blood Transfusion Reactions: No Reported Reaction Smoking Status: Former smoker - Past Family History Father Family Medical History: COPD Mother Family Medical History: Cancer Additional Family Medical History / Comment(s): lung ca Medications and Allergies Home Medications Medication Instructions Recorded Confirmed Type Aspirin EC [Ecotrin Low Dose] 81 mg PO DAILY@169901/19/19 07/14/19 History Ferrous Sulfate [Iron (65 MG 325 mg PO DAILY@169901/19/19 07/14/19 History Elemental)] Insulin Glargine,Hum.rec.anlog 26 unit SQ 01/19/19 07/14/19 History [Lantus Solostar] sitaGLIPtin PHOS/metFORMIN HCL 1 tab PO BID@0800,1700 01/19/19 07/14/19 History [Janumet 50-500 mg Tablet] Acetaminophen Oral Susp [Tylenol] 650 mg PO Q4H PRN 07/14/19 07/14/19 History Bisacodyl [Dulcolax] 10 mg RECTAL DAILY PRN 07/14/19 07/14/19 History Calmoseptine Cream 1 applic TOPICAL BID 07/14/19 07/14/19 History Docusate [Colace] 100 mg PO BID@0800,1700 07/14/19 07/14/19 History Ensure Clear 237 ml PO BID@0800,1700 07/14/19 07/14/19 History Lisinopril [Prinivil] 5 mg PO HS 07/14/19 07/14/19 History Loperamide [Imodium] 2 mg PO QID PRN 07/14/19 07/14/19 History Magnesium Hydroxide [Milk of 2,400 mg PO DAILY PRN 07/14/19 07/14/19 History Magnesia] Metoprolol Tartrate [Lopressor] 12.5 mg PO BID@0800,2100 07/14/19 07/14/19 Hist ory Na Phos,M-B/Na Phos,Di-Ba [Fleet 133 ml RECTAL DAILY PRN 07/14/19 07/14/19 History Adult] Polyethylene Glycol 3350 [Miralax] 17 gm PO DAILY PRN 07/14/19 07/14/19 History Sodium Chloride Solution 0.9% 1 dose IV DIRECTED 07/14/19 07/14/19 History Allergies Allergy/AdvReac Type Severity Reaction Status Date / Time codeine Allergy Unknown Verified 07/14/19 13:56 Surgical - Exam Vital Signs Temp Pulse Resp BP Pulse Ox 98.5 F 74 18 82/49 97 07/14/19 12:28 07/14/19 12:28 07/14/19 12:28 07/14/19 12:28 07/14/19 12:28 Results - Labs 07/15/19 04:46 07/15/19 04:46 Abnormal Lab Results - Last 24 Hours (Table) 07/14/19 07/14/19 07/14/19 Range/Units 12:52 12:52 12:52 WBC 15.2 H (3.8-10.6) k/uL RBC 3.90 L (4.30-5.90) m/uL Hgb (13.0-17.5) gm/dL Hct (39.0-53.0) % MCV 102.3 H (80.0-100.0) fL Plt Count (150-450) k/uL Neutrophils # 12.4 H (1.3-7.7) k/uL Potassium 6.9 H* (3.5-5.1) mmol/L Chloride (98-107) mmol/L Carbon Dioxide 14 L (22-30) mmol/L BUN 45 H (9-20) mg/dL Creatinine 2.95 H (0.66-1.25) mg/dL Glucose 59 L (74-99) mg/dL Plasma Lactic Acid Joey (0.7-2.0) mmol/L Calcium (8.4-10.2) mg/dL Total Protein 6.1 L (6.3-8.2) g/dL Albumin 3.4 L (3.5-5.0) g/dL Urine Protein 3+ H (Negative) Urine Glucose (UA) Trace H (Negative) Urine Bilirubin 1+ H (Negative) Ur Leukocyte Esterase Trace H (Negative) Urine Bacteria Rare H (None) /hpf 07/14/19 07/14/19 07/14/19 Range/Units 12:52 17:13 22:11 WBC (3.8-10.6) k/uL RBC (4.30-5.90) m/uL Hgb (13.0-17.5) gm/dL Hct (39.0-53.0) % MCV (80.0-100.0) fL Plt Count (150-450) k/uL Neutrophils # (1.3-7.7) k/uL Potassium (3.5-5.1) mmol/L Chloride (98-107) mmol/L Carbon Dioxide (22-30) mmol/L BUN (9-20) mg/dL Creatinine (0.66-1.25) mg/dL Glucose (74-99) mg/dL Plasma Lactic Acid Joey 7.2 H* 10.7 H* 5.6 H* (0.7-2.0) mmol/L Calcium (8.4-10.2) mg/dL Total Protein (6.3-8.2) g/dL Albumin (3.5-5.0) g/dL Urine Protein (Negative) Urine Glucose (UA) (Negative) Urine Bilirubin (Negative) Ur Leukocyte Esterase (Negative) Urine Bacteria (None) /hpf 07/14/19 07/14/19 07/15/19 Range/Units 22:34 22:34 04:46 WBC (3.8-10.6) k/uL RBC 3.47 L (4.30-5.90) m/uL Hgb 11.9 L (13.0-17.5) gm/dL Hct 36.1 L (39.0-53.0) % MCV 103.9 H (80.0-100.0) fL Plt Count 105 L (150-450) k/uL Neutrophils # 8.3 H (1.3-7.7) k/uL Potassium 6.1 H* (3.5-5.1) mmol/L Chloride 108 H (98-107) mmol/L Carbon Dioxide 16 L (22-30) mmol/L BUN 50 H (9-20) mg/dL Creatinine 3.22 H (0.66-1.25) mg/dL Glucose 62 L (74-99) mg/dL Plasma Lactic Acid Joey 4.9 H* (0.7-2.0) mmol/L Calcium 8.0 L (8.4-10.2) mg/dL Total Protein 5.2 L (6.3-8.2) g/dL Albumin 2.8 L (3.5-5.0) g/dL Urine Protein (Negative) Urine Glucose (UA) (Negative) Urine Bilirubin (Negative) Ur Leukocyte Esterase (Negative) Urine Bacteria (None) /hpf 07/15/19 07/15/19 07/15/19 Range/Units 04:46 04:46 08:57 WBC (3.8-10.6) k/uL RBC 3.34 L (4.30-5.90) m/uL Hgb 11.4 L (13.0-17.5) gm/dL Hct 34.5 L (39.0-53.0) % MCV 103.3 H (80.0-100.0) fL Plt Count 116 L (150-450) k/uL Neutrophils # (1.3-7.7) k/uL Potassium 5.8 H (3.5-5.1) mmol/L Chloride 110 H (98-107) mmol/L Carbon Dioxide 17 L (22-30) mmol/L BUN 53 H (9-20) mg/dL Creatinine 3.29 H (0.66-1.25) mg/dL Glucose (74-99) mg/dL Plasma Lactic Acid Joey 2.9 H* (0.7-2.0) mmol/L Calcium 7.9 L (8.4-10.2) mg/dL Total Protein 5.1 L (6.3-8.2) g/dL Albumin 2.7 L (3.5-5.0) g/dL Urine Protein (Negative) Urine Glucose (UA) (Negative) Urine Bilirubin (Negative) Ur Leukocyte Esterase (Negative) Urine Bacteria (None) /hpf Microbiology - Last 24 Hours (Table) 07/14/19 21:00 Stool Culture - Preliminary Stool Diabetes panel 07/14/19 07/14/19 07/15/19 Range/Units 12:52 22:34 04:46 Sodium 137 137 137 (137-145) mmol/L Potassium 6.9 H* 6.1 H* 5.8 H (3.5-5.1) mmol/L Chloride 104 108 H 110 H (98-107) mmol/L Carbon Dioxide 14 L 16 L 17 L (22-30) mmol/L BUN 45 H 50 H 53 H (9-20) mg/dL Creatinine 2.95 H 3.22 H 3.29 H (0.66-1.25) mg/dL Glucose 59 L 62 L 84 (74-99) mg/dL Calcium 8.6 8.0 L 7.9 L (8.4-10.2) mg/dL AST 36 32 34 (17-59) U/L ALT 27 23 22 (4-49) U/L Alkaline Phosphatase 95 79 69 (38-126) U/L Total Protein 6.1 L 5.2 L 5.1 L (6.3-8.2) g/dL Albumin 3.4 L 2.8 L 2.7 L (3.5-5.0) g/dL Calcium panel 07/14/19 07/14/19 07/15/19 Range/Units 12:52 22:34 04:46 Calcium 8.6 8.0 L 7.9 L (8.4-10.2) mg/dL Albumin 3.4 L 2.8 L 2.7 L (3.5-5.0) g/dL Pituitary panel 07/14/19 07/14/19 07/15/19 Range/Units 12:52 22:34 04:46 Sodium 137 137 137 (137-145) mmol/L Potassium 6.9 H* 6.1 H* 5.8 H (3.5-5.1) mmol/L Chloride 104 108 H 110 H (98-107) mmol/L Carbon Dioxide 14 L 16 L 17 L (22-30) mmol/L BUN 45 H 50 H 53 H (9-20) mg/dL Creatinine 2.95 H 3.22 H 3.29 H (0.66-1.25) mg/dL Glucose 59 L 62 L 84 (74-99) mg/dL Calcium 8.6 8.0 L 7.9 L (8.4-10.2) mg/dL Adrenal panel 07/14/19 07/14/19 07/15/19 Range/Units 12:52 22:34 04:46 Sodium 137 137 137 (137-145) mmol/L Potassium 6.9 H* 6.1 H* 5.8 H (3.5-5.1) mmol/L Chloride 104 108 H 110 H (98-107) mmol/L Carbon Dioxide 14 L 16 L 17 L (22-30) mmol/L BUN 45 H 50 H 53 H (9-20) mg/dL Creatinine 2.95 H 3.22 H 3.29 H (0.66-1.25) mg/dL Glucose 59 L 62 L 84 (74-99) mg/dL Calcium 8.6 8.0 L 7.9 L (8.4-10.2) mg/dL Total Bilirubin 1.1 0.7 0.7 (0.2-1.3) mg/dL AST 36 32 34 (17-59) U/L ALT 27 23 22 (4-49) U/L Alkaline Phosphatase 95 79 69 (38-126) U/L Total Protein 6.1 L 5.2 L 5.1 L (6.3-8.2) g/dL Albumin 3.4 L 2.8 L 2.7 L (3.5-5.0) g/dL
--- NOTE | 2019-07-15 13:48 | P.HPIM ---
History of Present Illness H&P Date: 07/15/19 HISTORY AND PHYSICAL AND DISCHARGE SUMMARY: This is an 83-year-old male patient of Dr. Currie but currently under the care of Dr. Trotter at [facility]. He has a past medical history of dementia, diabetes mellitus, hyperlipidemia, CAD, ND, former nicotine dependent, recent TIA. Patient apparently had some abnormal labs, abdominal pain and diarrhea at [facility]. Patient showed evidence of leukocytosis, hyperkalemia and acute kidney injury. Patient was sent into [facility] emergency center for evaluation. He was found to be afebrile, heart rate 74, blood pressure 82/49, pulse ox 97% on room air. WBC 15.2, hemoglobin 13.1, platelet count 158. Sodium 137, potassium 6.9, chlorides 104, CO2 14, BUN 45 and creatinine 2.95, blood sugar 59. C. difficile toxin negative. CAT scan of the abdomen and pelvis without contrast revealed fairly moderate uncomplicated fairly long segment acute colitis mid sigmoid colon through the rectum centered in the pelvis. Underlying neoplasm not entirely excluded. Differential includes infectious, inflammatory and ischemic etiology. Patient was given fluid bolus total of 2.5 L. Patient's condition was discussed with the family and they did not want aggressive treatment in the intensive care unit and patient is currently no CODE STATUS. Patient was started on IV Zosyn, admitted to the [facility] floor and consult obtained with Gen. surgery. During the night, patient continued to have low blood pressure and increased agitation. Family was contacted regarding update and recommended hospice care which they have agreed to and patient will return to [facility] under hospice care. Review of Systems ROS unobtainable: due to mental status Past Medical History Past Medical History: Coronary Artery Disease (CAD), CVA/TIA, Dementia, Diabetes Mellitus, Hyperlipidemia, Hypertension, Myocardial Infarction (ND), Renal Disea se Additional Past Medical History / Comment(s): Worsening dementia, IDDM type II, neuropathy bilateral hands, recently informed kidneys are not functioning properly, TIA, L lower leg blisters, confusion, self transfers/falls, dysphagia- sit up to eat and cut food up small, constipation Last Myocardial Infarction Date:: 1989 History of Any Multi-Drug Resistant Organisms: None Reported Past Surgical History: Cholecystectomy, Heart Catheterization, Orthopedic Surgery Additional Past Surgical History / Comment(s): 1989 cardiac cath-treated medically, L leg injury with surgery/treasure Past Anesthesia/Blood Transfusion Reactions: No Reported Reaction Smoking Status: Former smoker - Past Family History Father Family Medical History: COPD Mother Family Medical History: Cancer Additional Family Medical History / Comment(s): lung ca Medications and Allergies Home Medications Medication Instructions Recorded Confirmed Type Acetaminophen Oral Susp [Tylenol] 650 mg PO Q4H PRN 07/14/19 07/14/19 History Bisacodyl [Dulcolax] 10 mg RECTAL DAILY PRN 07/14/19 07/14/19 History Calmoseptine Cream 1 applic TOPICAL BID 07/14/19 07/14/19 History Ensure Clear 237 ml PO BID@0800,1700 07/14/19 07/14/19 History Atropine Ophth Soln 1% 5Ml [Isopto 2 drops PO Q4HR PRN #1 bottle 07/15/19 Rx Atropine 1% 5Ml] LORazepam ORAL CONC [Ativan 2 mg PO Q4HR PRN #30 ml 07/15/19 Rx Intensol] MORPHINE ORAL KATHERINE CONC 20mg/mL 5 mg PO Q4H PRN #30 ml 07/15/19 Rx [Roxanol Oral Soln Conc 20MG/ML] Allergies Allergy/AdvReac Type Severity Reaction Status Date / Time codeine Allergy Unknown Verified 07/14/19 13:56 Physical Exam Vitals: Vital Signs Temp Pulse Pulse Resp BP BP Pulse Ox 07/15/19 06:16 97 F L 89 18 79/45 94 L 07/15/19 00:21 95 07/14/19 23:52 95 07/14/19 23:13 97.4 F L 95 18 84/51 100 07/14/19 21:30 82/40 07/14/19 21:26 98.1 F 71 16 79/37 96 07/14/19 16:01 97.6 F 89 18 73/33 97 07/14/19 16:00 89 18 07/14/19 15:24 92 18 84/50 100 07/14/19 15:15 98.0 F 93 18 72/34 99 07/14/19 15:00 93 18 88/42 100 07/14/19 14:45 96 18 73/56 96 07/14/19 14:30 95 18 73/46 98 07/14/19 14:21 85 07/14/19 14:15 89 18 90/40 97 07/14/19 14:06 72 07/14/19 14:00 70 18 75/50 97 07/14/19 13:35 71 18 78/40 98 07/14/19 13:00 73 18 77/40 98 07/14/19 12:28 98.5 F 74 18 82/49 97 Intake and Output 07/14/19 07/15/19 07/15/19 22:59 06:59 14:59 Intake Total 2400 Output Total 2 Balance -2 2400 Intake: Intake, IV Titration 2400 Amount ACETAMINOPHEN IV (For NPO 100 ) 1,000 mg In Empty Bag 1 bag @ 400 mls/hr IVPB Q6HR [facility] Rx#:[id number] Calcium Gluconate 1 gm In 100 Sodium Chloride 0.9% 100 ml @ 100 mls/hr IVPB ONCE ONE Rx#:[id number] Sodium Chloride 0.9% 1, 1200 000 ml @ 150 mls/hr IV . Q6H40M [facility] Rx#:[id number] Sodium Chloride 0.9% 1, 1000 000 ml @ 999 mls/hr IV . Q1H1M ONE Rx#:[id number] Output: Stool 2 Other: Voiding Method Diaper Incontinent # Voids 1 4 # Bowel Movements 3 8 Weight 81.647 kg Gen: This is an 83-year-old male. Patient is moaning unable to determine if this is due to pain. HEENT: Head is atraumatic, normocephalic. Pupils equal, round. Sclerae is anicteric. NECK: Supple. No JVD. No lymphadenopathy. No thyromegaly. LUNGS: Clear to auscultation. No wheezes or rhonchi. No intercostal retractions. HEART: Regular rate and rhythm. No murmur. ABDOMEN: Soft. Bowel sounds are present. No masses. Mild diffuse tenderness. EXTREMITIES: No pedal edema. No calf tenderness. NEUROLOGICAL: Patient is awake, alert and oriented x3. Cranial nerves 2 through 12 are grossly intact. Results CBC & Chem 7: 07/15/19 04:46 07/15/19 04:46 Labs: Abnormal Lab Results - Last 24 Hours (Table) 07/14/19 07/14/19 07/14/19 Range/Units 12:52 12:52 12:52 WBC 15.2 H (3.8-10.6) k/uL RBC 3.90 L (4.30-5.90) m/uL Hgb (13.0-17.5) gm/dL Hct (39.0-53.0) % MCV 102.3 H (80.0-100.0) fL Plt Count (150-450) k/uL Neutrophils # 12.4 H (1.3-7.7) k/uL Potassium 6.9 H* (3.5-5.1) mmol/L Chloride (98-107) mmol/L Carbon Dioxide 14 L (22-30) mmol/L BUN 45 H (9-20) mg/dL Creatinine 2.95 H (0.66-1.25) mg/dL Glucose 59 L (74-99) mg/dL Plasma Lactic Acid Joey (0.7-2.0) mmol/L Calcium (8.4-10.2) mg/dL Total Protein 6.1 L (6.3-8.2) g/dL Albumin 3.4 L (3.5-5.0) g/dL Urine Protein 3+ H (Negative) Urine Glucose (UA) Trace H (Negative) Urine Bilirubin 1+ H (Negative) Ur Leukocyte Esterase Trace H (Negative) Urine Bacteria Rare H (None) /hpf 07/14/19 07/14/19 07/14/19 Range/Units 12:52 17:13 22:11 WBC (3.8-10.6) k/uL RBC (4.30-5.90) m/uL Hgb (13.0-17.5) gm/dL Hct (39.0-53.0) % MCV (80.0-100.0) fL Plt Count (150-450) k/uL Neutrophils # (1.3-7.7) k/uL Potassium (3.5-5.1) mmol/L Chloride (98-107) mmol/L Carbon Dioxide (22-30) mmol/L BUN (9-20) mg/dL Creatinine (0.66-1.25) mg/dL Glucose (74-99) mg/dL Plasma Lactic Acid Joey 7.2 H* 10.7 H* 5.6 H* (0.7-2.0) mmol/L Calcium (8.4-10.2) mg/dL Total Protein (6.3-8.2) g/dL Albumin (3.5-5.0) g/dL Urine Protein (Negative) Urine Glucose (UA) (Negative) Urine Bilirubin (Negative) Ur Leukocyte Esterase (Negative) Urine Bacteria (None) /hpf 07/14/19 07/14/19 07/15/19 Range/Units 22:34 22:34 04:46 WBC (3.8-10.6) k/uL RBC 3.47 L (4.30-5.90) m/uL Hgb 11.9 L (13.0-17.5) gm/dL Hct 36.1 L (39.0-53.0) % MCV 103.9 H (80.0-100.0) fL Plt Count 105 L (150-450) k/uL Neutrophils # 8.3 H (1.3-7.7) k/uL Potassium 6.1 H* (3.5-5.1) mmol/L Chloride 108 H (98-107) mmol/L Carbon Dioxide 16 L (22-30) mmol/L BUN 50 H (9-20) mg/dL Creatinine 3.22 H (0.66-1.25) mg/dL Glucose 62 L (74-99) mg/dL Plasma Lactic Acid Joey 4.9 H* (0.7-2.0) mmol/L Calcium 8.0 L (8.4-10.2) mg/dL Total Protein 5.2 L (6.3-8.2) g/dL Albumin 2.8 L (3.5-5.0) g/dL Urine Protein (Negative) Urine Glucose (UA) (Negative) Urine Bilirubin (Negative) Ur Leukocyte Esterase (Negative) Urine Bacteria (None) /hpf 07/15/19 07/15/19 Range/Units 04:46 04:46 WBC (3.8-10.6) k/uL RBC 3.34 L (4.30-5.90) m/uL Hgb 11.4 L (13.0-17.5) gm/dL Hct 34.5 L (39.0-53.0) % MCV 103.3 H (80.0-100.0) fL Plt Count 116 L (150-450) k/uL Neutrophils # (1.3-7.7) k/uL Potassium 5.8 H (3.5-5.1) mmol/L Chloride 110 H (98-107) mmol/L Carbon Dioxide 17 L (22-30) mmol/L BUN 53 H (9-20) mg/dL Creatinine 3.29 H (0.66-1.25) mg/dL Glucose (74-99) mg/dL Plasma Lactic Acid Joey (0.7-2.0) mmol/L Calcium 7.9 L (8.4-10.2) mg/dL Total Protein 5.1 L (6.3-8.2) g/dL Albumin 2.7 L (3.5-5.0) g/dL Urine Protein (Negative) Urine Glucose (UA) (Negative) Urine Bilirubin (Negative) Ur Leukocyte Esterase (Negative) Urine Bacteria (None) /hpf Microbiology - Last 24 Hours (Table) 07/14/19 21:00 Stool Culture - Preliminary Stool Thrombosis Risk Factor Assmnt - DVT/VTE Prophylaxis DVT/VTE Prophylaxis: Contraindicated - See note (Hospice) - Choose All That Apply Any of the Below Risk Factors Present?: Yes Each Factor Represents 1 point: Sepsis (< 1month) Other Risk Factors: Yes Each Risk Factor Represents 3 Points: Age 75 years or older Other congenital or acquired thrombophilia - If yes, enter type in comment: No Thrombosis Risk Factor Assessment Total Risk Factor Score: 4 Thrombosis Risk Factor Assessment Level: Moderate Risk Assessment and Plan Plan: 1. Acute ischemic colitis and SIRS. Consult with Gen. surgery appreciated. 2. Lactic acidosis secondary to SIRS. 3. Acute kidney injury, ATN with severe hyperkalemia. 4. Metabolic acidosis secondary to acute kidney injury. 5. Stool positive for occult blood, possible acute GI bleed cannot be entirely ruled out. Stable hemoglobin. 6. Thrombocytopenia secondary to SIRS. 7. Past medical history of diabetes mellitus type 2, hypertension, hyperlipidemia, vascular dementia, TIA, coronary artery disease with previous myocardial infarction, remote history of tobacco use and dependence. Patient will be admitted to the hospital for a minimum of 1 night stay. Discharge plan: Return to [facility] under [facility] care. Discharge Medication List Acetaminophen Oral Susp [Tylenol] 650 mg PO Q4H PRN 07/14/19 [History] Bisacodyl [Dulcolax] 10 mg RECTAL DAILY PRN 07/14/19 [History] Calmoseptine Cream 1 applic TOPICAL BID 07/14/19 [History] Ensure Clear 237 ml PO BID@0800,1700 07/14/19 [History] Atropine Ophth Soln 1% 5Ml [Isopto Atropine 1% 5Ml] 2 drops PO Q4HR PRN #1 bottle 07/15/19 [Rx] LORazepam ORAL CONC [Ativan Intensol] 2 mg PO Q4HR PRN #30 ml 07/15/19 [Rx] MORPHINE ORAL KATHERINE CONC 20mg/mL [Roxanol Oral Soln Conc 20MG/ML] 5 mg PO Q4H PRN #30 ml 07/15/19 [Rx] Impression and plan of care have been directed as dictated by the signing physician. Chanel Cerda nurse practitioner acting as scribe for signing physician.
[2019-07-15] MEDS ORDERED: HALOPERIDOL LACTATE 5 MG/ML 1 ML VIAL IM PRN (15:09)
[2019-07-15 17:19] LABS: Glucose,Whole Blood 76 mg/dL (75-99)
[2019-07-15] MEDS ORDERED: PIPERACILLIN-TAZOBACTAM 3.375 GM in SODIUM CHLORIDE 0.9% 100 ML IVPB SCH (19:00)
== END 2019-07-15 18:09 | DRG 871 ==
LOC: EC 12:23 → 5NMEDONC 14:18
PROVIDERS: ADMIT Internal Medicine; ATTEND Internal Medicine
DX: A41.9 Sepsis, unspecified organism (principal); R65.21 Severe sepsis with septic shock; K55.039 Acute (reversible) ischemia of large intestine, extent unspecified; N17.0 Acute kidney failure with tubular necrosis; E87.2 Acidosis; Z66 Do not resuscitate; Z51.5 Encounter for palliative care; E11.41 Type 2 diabetes mellitus with diabetic mononeuropathy; D69.59 Other secondary thrombocytopenia; E11.9 Type 2 diabetes mellitus without complications; F01.50 Vascular dementia, unspecified severity, without behavioral disturbance, psychotic disturbance, mood disturbance, and anxiety; G56.93 Unspecified mononeuropathy of bilateral upper limbs; E87.5 Hyperkalemia; I25.2 Old myocardial infarction; E78.5 Hyperlipidemia, unspecified; Z79.82 Long term (current) use of aspirin; Z79.4 Long term (current) use of insulin; Z79.899 Other long term (current) drug therapy; Z88.5 Allergy status to narcotic agent; Z90.49 Acquired absence of other specified parts of digestive tract; Z87.891 Personal history of nicotine dependence; I10 Essential (primary) hypertension; I25.10 Atherosclerotic heart disease of native coronary artery without angina pectoris; Z86.73 Personal history of transient ischemic attack (TIA), and cerebral infarction without residual deficits; Z82.5 Family history of asthma and other chronic lower respiratory diseases; Z80.1 Family history of malignant neoplasm of trachea, bronchus and lung
CPT/HCPCS: 36415; 71046; 74176; 80053; 81001; 82272; 83605; 83630; 85025; 85610; 85730; 87040; 87045; 87046; 87324; 87502; 93005; 94640; 94644; 96361; 96365; 96366; 96368; 96375; 99291